=== PATIENT | female | born 1950 | race Caucasian/White ===

== ENCOUNTER → 2022-11-13 13:47 | Outpatient (BNVA) | payer OTHER, SELFPAY | PROVIDERS: PCP Student in an Organized Health Care Education/Training Program; Visit Provider Internal Medicine | DX: R00.2 Palpitations (principal); I10 Essential (primary) hypertension | CPT/HCPCS: 93005; 99212 ==

== ENCOUNTER → 2022-11-23 13:39 | Outpatient (REF) | payer OTHER, SELFPAY ==
--- NOTE | 2022-11-23 13:42 | HM_ITS ---
* Total monitoring time 30 days. Wear time 26 days. * Monitoring dates 11/23/2022 to 12/23/2022. * Underlying rhythm is sinus. Average ventricular rate 58/Min. Range 50 to 133/Min. * No evidence of atrial fibrillation. * There is evidence of supraventricular ectopy, sinus bradycardia, ventricular ectopy, possible junctional rhythm. One episode of NSVT, 6 beats. Unifocal. Cannot exclude aberrant conduction. * Palpitations, lightheadedness, skipped beats, irregular beats, flutter, headache described in diary. At different times, they have been associated with sinus rhythm, PACs, PVCs, bradycardia, junctional rhythm. Even while she was in junctional which is also not very clear, ventricular rate was still 60/Min. Hence nothing profound. MTDD
== END ==
LOC: HO.CARD 13:39
PROVIDERS: PCP Student in an Organized Health Care Education/Training Program; Visit Provider Internal Medicine
DX: R00.2 Palpitations (principal)
CPT/HCPCS: 93270

== ENCOUNTER 2023-05-23 14:49 | Outpatient (REF) | payer OTHER, SELFPAY ==
[2023-05-23 18:23] LABS: Anion Gap 15 (12-20); Blood Urea Nitrogen 14 mg/dL (9-16); Calcium 9.6 mg/dL (8.4-10.2); Carbon Dioxide 25 mmol/L (22-29); Chloride 104 mmol/L (96-108); Estimated Glomerular Filt Rate > 60; Glucose Random 107 mg/dL (60-115); Potassium 3.6 mmol/L (3.3-5.1); Sodium 140 mmol/L (135-145)
== END 2023-05-23 14:50 | disposition home or self-care (01) ==
LOC: HO.CHCLDS 14:49
PROVIDERS: Visit Provider Internal Medicine
DX: E87.6 Hypokalemia (principal)
CPT/HCPCS: 36415; 80048

== ENCOUNTER 2023-07-02 10:21 | Outpatient (REF) | payer OTHER, SELFPAY | END 2023-07-02 10:22 | disposition home or self-care (01) | LOC: HO.CHCLDS 10:21 | PROVIDERS: Visit Provider Student in an Organized Health Care Education/Training Program | DX: I10 Essential (primary) hypertension (principal) | CPT/HCPCS: 36415; 80048; 80061; 80076 ==

== ENCOUNTER 2024-01-30 09:32 | Outpatient (REF) | payer OTHER, SELFPAY ==
[2024-01-30 15:17] LABS: Anion Gap 16 (12-20); Blood Urea Nitrogen 17 mg/dL (9-16); Calcium 10.6 mg/dL (8.4-10.2); Carbon Dioxide 26 mmol/L (22-29); Chloride 103 mmol/L (96-108); Estimated Glomerular Filt Rate > 60; Glucose Fasting 86 mg/dL (60-99); Potassium 3.6 mmol/L (3.3-5.1); Sodium 141 mmol/L (135-145)
== END 2024-01-30 09:33 | disposition home or self-care (01) ==
LOC: HO.CHCLDS 09:32
PROVIDERS: Visit Provider Internal Medicine Cardiovascular Disease
DX: I48.0 Paroxysmal atrial fibrillation (principal)
CPT/HCPCS: 36415; 80048

== ENCOUNTER 2024-05-07 09:08 | Outpatient (REF) | payer OTHER, SELFPAY ==
[2024-05-07 14:07] LABS: Appearance Urine Clear; Color Urine Yellow; Glucose Urine UA Negative (Negative); Leukocyte Esterase Urine Trace (Negative); Nitrite Urine Negative (Negative); UMIC TRIGGER UA YES; Urine Blood Large (3+) (Negative); Urine Ketones Negative (Negative); Urine Protein Negative (Neg-Trace)
[2024-05-07 14:13] LABS: Bacteria Urine None Seen (None Seen); Hyaline Casts Urine 0-2 /LPF (0-2); RBC Urine >20 /HPF (0-2); Squamous Epithelial Cell Urine 0-2 /HPF (0-2); WBC Urine 0-5 /HPF (0-5)
[2024-05-07 14:47] LABS: Alanine Aminotransferase 22 U/L (0-31); Albumin Level 4.2 g/dL (3.5-5.0); Alkaline Phosphatase 75 U/L (39-117); Anion Gap 12 (12-20); Aspartate Amino Transferase 20 U/L (5-31); Bilirubin Direct 0.2 mg/dL (0.0-0.5); Bilirubin Total 0.5 mg/dL (0.0-1.0); Blood Urea Nitrogen 17 mg/dL (9-16); Calcium 9.6 mg/dL (8.4-10.2); Carbon Dioxide 28 mmol/L (22-29); Chloride 105 mmol/L (96-108); Cholesterol 194 mg/dL (<200); Estimated Glomerular Filt Rate 56; Glucose Random 101 mg/dL (60-115); HDL Cholesterol 64 mg/dL (>40); LDL Cholesterol Calculated 113 mg/dL (<100); Potassium 3.6 mmol/L (3.3-5.1); Sodium 141 mmol/L (135-145); Triglycerides 87 mg/dL (<150)
== END 2024-05-07 09:09 | disposition home or self-care (01) ==
LOC: HO.CHCLDS 09:08
PROVIDERS: Visit Provider Student in an Organized Health Care Education/Training Program
DX: I10 Essential (primary) hypertension (principal); R31.21 Asymptomatic microscopic hematuria
CPT/HCPCS: 36415; 80048; 80061; 80076; 81001

== ENCOUNTER 2024-09-01 10:36 | Outpatient (REF) | payer OTHER, SELFPAY ==
[2024-09-01 14:47] LABS: Alanine Aminotransferase 27 U/L (0-31); Albumin Level 4.2 g/dL (3.5-5.0); Alkaline Phosphatase 78 U/L (39-117); Anion Gap 15 (12-20); Aspartate Amino Transferase 31 U/L (5-31); Bilirubin Direct 0.3 mg/dL (0.0-0.5); Bilirubin Total 0.6 mg/dL (0.0-1.0); Blood Urea Nitrogen 13 mg/dL (9-16); Calcium 9.7 mg/dL (8.4-10.2); Carbon Dioxide 29 mmol/L (22-29); Chloride 103 mmol/L (96-108); Cholesterol 198 mg/dL (<200); Estimated Glomerular Filt Rate 60; Glucose Random 91 mg/dL (60-115); HDL Cholesterol 64 mg/dL (>40); LDL Cholesterol Calculated 116 mg/dL (<100); Potassium 3.6 mmol/L (3.3-5.1); Sodium 143 mmol/L (135-145); Total Protein 8.2 g/dL (6.5-8.0); Triglycerides 94 mg/dL (<150)
--- OUTSIDE RECORDS SUMMARY | 2024-09-02 19:55 | XMS_ITS | Data Portability ---
Author Organization [employer] Address [address] [place] [phone] Care Team Providers Care Senior Communications Engineer Name Role Phone [facility] Referring Provider [facility] Referring Provider Assessment No assessment recorded. Plan of Treatment Reminders Order Date Submit Date Provider Last Modified By Organization Details Last Modified Time Details Appointments None record ed. Lab None record ed. Referral None record ed. Procedures None record ed. Surgeries None record ed. Imaging None record ed. Medication Orders None record ed. Patient TargetsNo targets recorded. Patient InstructionsNo instructions recorded. Reason for Referral None Reported. Medical Equipment None Reported. Medications Name Sig Start Date Stop Date Status Note LastModified by Organization Details LastModified Time losartan 50 mg tablet TAKE 1 TABLET BY MOUTH EVERY DAY active Not Available Not Available No t Available cyclobenzapr ine 10 mg tablet active Not Available Not Available Not Available potassium chloride ER 10 mEq capsule,exte nded release TAKE 1 CAPSULE BY MOUTH TWICE DAILY active Not Available Not Available No t Available clonidine HCl 0.1 mg tablet TAKE 1 TABLET BY MOUTH TWICE DAILY active Not Available Not Available No t Available trazodone 50 mg tablet active Not Available Not Available No t Available triamcinolon e acetonide 0.5 % topical cream APPLY A THIN LAYER TOPICALLY TO THE AFFECTED AREAS TWICE DAILY active Not Available Not Available No t Available metoprolol tartrate 100 mg tablet TAKE 1 TABLET BY MOUTH TWO TIMES A DAY active Not Available Not Available Not Available ondansetron HCl 4 mg tablet TAKE 1 TABLET BY MOUTH EVERY 8 HOURS NEEDED FOR NAUSEA AND VOMITING FOR 1 DAY active Not Available Not Available No t Available metoprolol succinate ER 100 mg tablet,exten ded release 24 hr TAKE 1 TABLET BY MOUTH ONCE DAILY FOR 30 DAYS STOP PREVIOUS METOPROLOL PRESCRIPTIO N active Not Available Not Available No t Available atenolol 25 mg tablet TAKE 1 TABLET BY MOUTH IN THE MORNING active Not Available Not Available Not Available aspirin 81 mg tablet,delay ed release TAKE 1 TABLET BY MOUTH ONCE DAILY active Not Available Not Available No t Available alprazolam 0.5 mg tablet active Not Available Not Available Not Available flecainide 100 mg tablet TAKE 1 TABLET BY MOUTH EVERY 12 HOURS active Not Available Not Available No t Available pravastatin 20 mg tablet TAKE 1 TABLET BY MOUTH EVERY DAY AT BEDTIME active Not Available Not Available No t Available losartan 100 mg tablet TAKE 1 TABLET BY MOUTH EVERY DAY active Not Available Not Available No t Available Heartburn Relief (famotidine) 10 mg tablet TAKE 1 TABLET BY MOUTH TWICE DAILY NEEDED DYSPEPSIA active Not Available Not Available No t Available metoprolol tartrate 25 mg tablet TAKE 1 TABLET BY MOUTH TWICE DAILY active Not Available Not Available No t Available peg 3350-electro lytes 236 gram-22.74 gram-6.74 gram-5.86 gram solution USE DIRECTED PER PHYSICIAN INSTRUCTION S active Not Available Not Available No t Available Eliquis 5 mg tablet TAKE 1 TABLET BY MOUTH TWICE DAILY active Not Available Not Available No t Available BinaxNOW COVID-19 Ag Self Test kit Use as Directed on the Package active Not Available Not Available Not Available Vitals Date Recorded Oxygen saturation Oxygen saturation in Arterial blood by Pulse oximetry Body weight Heart rate Body height Respiratory rate Body temperature Systolic blood pressure Diastolic blood pressure Provider Name and Address Organization Details Last Updated DateTime 4 97 % 97 % 69224.8 g 56 /min 152.4 cm 14 /min 98.4 [degF] 160 mm[Hg] 90 mm[Hg] Not Available [facility] 4 13:48:02 Date Recorded Respiratory rate Body height Heart rate Body temperature Body weight Oxygen saturation Oxygen saturation in Arterial blood by Pulse oximetry Systolic blood pressure Diastolic blood pressure Provider Name and Address Organization Details Last Updated DateTime 4 16 /min 154.94 cm 76 /min 98.2 [degF] 55187.8 g 98 % 98 % 166 mm[Hg] 81 mm[Hg] Not Available [facility] 16:22:15 Social History None recorded. Functional Status None recorded. Mental Status None recorded. Family History Nothing Reported. Medical History No medical history recorded. Gynecological HistoryNo gynecological history recorded. Obstetrics History GPAL:G 0 P 0 0 0 0 Past Encounters Encounter ID Performer Location Encounter Start Date Encounter Closed Date Diagnosis/Indication Diagnosis SNOMED-CT Code Diagnosis ICD10 Code [id number] PAVAN AL MD [facility] [address] [place] [phone] 10/30/2023 13:47:18 10/31/2023 09:41:32 Sinus bradycardia 12207072 R00.1 [id number] Diana Rutledge MD [facility] [address] [place] [phone] 11/25/2023 16:22:07 11/26/2023 09:34:29 Congestive heart failure 75320424 I50.9 Health Concerns Section Related Observation LastModified by Organization Detai ls LastModified Time None Recorded Concern Status LastModified by Organization Details LastModified Time None Recorded Advance Directives Directive None Recorded Payers Encounter Date Sequence Insurance Name Policy Number Policy Desir Covered Member ID Desir Member ID Guarantor Name 10/30/2023 1 [facility] - DOS ON OR AFTER 2022 - DUAL ELIGIBLE - CUSTODIAL OPTIONS AND ONE CARE (MEDICARE REPLACEMENT/ADV ANTAGE - HMO) Dayan Gomez [id number] Dayan Gomez 11/25/2023 1 [facility] AFTER [facility] - DUAL ELIGIBLE - CUSTODIAL OPTIONS AND ONE CARE (MEDICARE REPLACEMENT/ADV ANTAGE - HMO) Dayan Gomez [id number] Dayanjeremy Gomez Notes Date Note Type Note Provider Name and Address Organization Details Recorded Time 10/30/2023 text/html [facility] Nurse Triage Notes (Steph De La Cruz): Reason For Request: Pt reporting pressure in her neck (left side) which is extending to her jaw>has never felt this sort of pressure before>states she has AFIB Chief Complaints: Pain PMH: Heart Disease Allergies: No Known Comments: left sided neck and jaw pressure since this morning. Denies chest/back or left arm pain. No dizziness/lighthea dedness or visual changes. Reports worsening pressure with movement. No trauma or swelling reported. Put on Eliquis recently for Afib. .................. .................. .................. .................. .................. .................. .................. ............... Automatic Toe Laster Note From Bryn Fuentes: Pt caox3 complains of palpitations last night. Pt denies complaints now. Pt reports a pressure in her upper neck woke her from sleep last night. Pressure was in her left arm as well and she says her HR was in the 40s. Pt also felt palpitations. Again, pt denies symptoms now. Pt reports she started eliquis last week but metoprolol dose remains unchanged. Pt pink warm and dry, secondary exam unremarkable. EKG to [facility]. [facility] requests that pt call bioanalyst to adjust dose today. I helped pt call the nurse at Dr. Howard's office at 2pm. They were given a thorough message to give to the MD. Pt advised if she gets palpations or pressure to call 911. Red flags and pt education discussed. Pt pleased with visit, appears reassured, is with family. .................. .................. .................. .................. .................. .................. .................. ............... Disposition: Fulfilled PAVAN AL MD [address] [facility], [place], [phone], [facility] 10/30/2023 17:48:50 11/25/2023 text/html [facility] Nurse Triage Notes (Mata Montoya): Reason For Request: Pt reporting bilateral equal swelling of both lower extremities (feet) going on for 6 days>went to PCP last saturday and was told by doctor probably the medication and states the lungs were clear Chief Complaints: Edema PMH: Heart Disease Allergies: No Known Comments: Deck Engineer verified the member's name//address and phone number. Education provided on the response time and the member was advised to monitor reported s/s and seek emergency treatment if needed. Member reporting bilateral equal edema x 6 days>went to PCP last Saturday and was told by doctor probably the medication and states the lungs were clear. Denies SOB - Wellness check requested .................. .................. .................. .................. .................. .................. .................. ............... Automatic Toe Laster Note From Joe Diaz: Pt reports increased palpitations and BLE edema since starting flecainide. Pt has not spoken to cardiology since starting the medication. Pt denies any diet changes, chest pain or pressure, SOB, LYON, f/n/v/d. Pt is alert, NAD. VSS. Afebrile. Non focal neuro exam. Normal gait. Lungs CTA. Benign ABD exam. +1 BLE edema. Unremarkable ECG. Pt called cardiology office with me present and they said a nurse or doctor will call back either before 5 pm today or first thing tomorrow morning. Pt instructed to continue the flecainide as prescribed until she speaks with the cardiology office. Pt also instructed to seek emergent medical care for new or worsening sx, which are reviewed with her. .................. .................. .................. .................. .................. .................. .................. ............... Disposition: Fulfilled Diana Rutledge MD [address] [place] [address],[address], [place], [phone], [facility] 11/25/2023 22:49:15 OBGyn Episode No OBEpisode recorded.
--- OUTSIDE RECORDS SUMMARY | 2024-09-02 19:55 | XMS_ITS | Continuity of Care Document ---
Author Organization [facility] Address [address] [place] [address]- Care Team Providers Care Laboratory Equipment Cleaner Name Role Phone Ariadne Jordan MD Primary Care Physician Encounter 07/29/24 - 08/05/24 [facility] [address], [address] [place] [address]- Attending Physician: Malcolm Castillo MD, I Admitting Physician: Malcolm Castillo MD, I Referring Physician: Malcolm Castillo MD, I Encounter Type: OutPatient One Time Allergies, Adverse Reactions, Alerts No Known Medication Allergies Immunizations Given and Recorded Vaccine Date Status Refusal Reason influenza virus vaccine, inactivated 08/22/22 Felipe rded influenza virus vaccine, inactivated 08/02/21 Felipe rded influenza virus vaccine, inactivated 08/17/20 Felipe rded influenza virus vaccine, inactivated 06/09/19 Felipe rded influenza virus vaccine, inactivated 09/29/18 Felipe rded influenza virus vaccine, inactivated 07/22/17 Felipe rded influenza virus vaccine, inactivated 07/12/16 Felipe rded influenza virus vaccine, inactivated 08/04/15 Felipe rded SARS-CoV-2 mRNA ([id number]) vax 04/14/22 Recorded SARS-CoV-2 (COVID-19) mRNA BNT-162b2 vac 07/24/21 Recorded SARS-CoV-2 (COVID-19) mRNA BNT-162b2 vac 11/22/20 Recorded SARS-CoV-2 (COVID-19) mRNA BNT-162b2 vac 11/01/20 Recorded pneumococcal 23-valent vaccine 09/29/18 Recorded pneumococcal 13-valent vaccine 07/22/17 Recorded Zoster Vaccine Live 07/12/16 Recorded tetanus/diphtheria/pertussis, acel(Tdap) 04/05/16 Recorded Medications amiodarone 200 mg oral tablet 1, tablet, By Mouth, Daily, # 90 tablet, Refills 2, Maintenance, 06/29/24 7:42:00 AM EDT, Route to Pharmacy Electronically, [facility], 158, cm, 06/01/24 10:02:00 EDT, Height, 68, kg, 05/18/24 14:57:00 EDT, Dry Weight Start Date: 06/29/24 Status: Ordered Quantity: 90.0 Unit: tablet Repeat number: 1 amLODIPine 5 mg oral tablet 5 mg, 1, tablet, By Mouth, Daily, # 90 tablet, Refills 1, Tot. Refills 1, Maintenance, 01/02/24 2:00:00 PM EDT, Route to Pharmacy Electronically, [facility], Partial fill upon patient request if the prescription is for a schedule II opioid drug., 157.48, cm, 01/02/24 13:16:00 EDT, Height,68.5, kg, 10/31/23 16:59:00 EST, Dry Weight Start Date: 01/02/24 Status: Ordered Quantity: 90.0 Unit: tablet Repeat number: 2 apixaban 5 mg oral tablet 1 tablet = 5 mg, By Mouth, 2 times a day, # 180 tablet, 0 Refills, Maintenance, 03/24/24 3:16:00 PM EDT, Tablet, [facility], Partial fill upon patient request if the prescription is for a schedule II opioid drug., 157.48, cm, 01/02/24 13:16:00 EDT, Height, 68.5, kg, 10/31/23 16:59:00 EST, Dry Weight Start Date: 03/24/24 Status: Ordered Quantity: 180.0 Unit: tablet Repeat number: 1 cetirizine 10 mg oral tablet 1 tablet = 10 mg, Daily, 0 Refills, Maintenance, 11/29/23 9:50:00 AM EST, Partial fill upon patient request if the prescription is for a schedule II opioid drug. Start Date: 11/29/23 Status: Ordered Repeat number: 1 famotidine 10 mg oral tablet 1 tablet = 10 mg, By Mouth, 2 times a day, PRN Dyspepsia, # 30 tablet, 1 Refills, Soft Stop, :24:00 AM EST, [facility], Partial fill upon patient request if the prescription is fora schedule II opioid drug., 158, cm, 10/29/23 8:06:00 EST, Height, 66.4, kg, 05/14/23 20:12:00 EDT,Dry Weight Start Date: 10/29/23 Status: Ordered Quantity: 30.0 Unit: tablet Repeat number: 2 Indication: Encounter for screening for malignant neoplasm of colon losartan 100 mg oral tablet 1 tablet = 100 mg, By Mouth, Daily, # 90 tablet, 0 Refills, Maintenance, 07/03/23 4:33:00 PM EDT, Tablet, [facility], Partial fill upon patient request if the prescription is for a schedule II opioid drug., 158, cm, 07/03/23 15:21:00 EDT, Height, 66.4, kg, 05/14/23 20:12:00 EDT, Dry Weight Start Date: 07/03/23 Status: Ordered Quantity: 90.0 Unit: tablet Repeat number: 1 metoprolol 100 mg oral tablet 50 mg, 0.5, tablet, By Mouth, 2 times a day, # 30 tablet, Refills 1, Tot. Refills 1, Maintenance, 05/15/23 10:59:00 AM EDT, Route to Pharmacy Electronically, [facility] 3, Partial fill upon patient request if the prescription is for a schedule II opioid drug., 158, cm, 05/15/23 7:21:00 ED T, Height, 66.4, kg, 05/14/23 20:12:00 EDT, Dry Weight Start Date: 05/15/23 Stop Date: 07/14/23 Status: Ordered Quantity: 30.0 Unit: tablet Repeat number: 2 omeprazole 40 mg oral enteric coated capsule 1 capsule = 40 mg, By Mouth, 2 times a day, # 28 capsule, 0 Refills, Maintenance, 05/28/24 1:51:00 PMEDT, [facility], Partial fill upon patient request if the prescription is for a scheduleII opioid drug., 158, cm, 05/18/24 14:57:00 EDT, Height, 68, kg, 05/18/24 14:57:00 EDT, Dry Weight Start Date: 05/28/24 Stop Date: 06/11/24 Status: Ordered Quantity: 28.0 Unit: capsule Repeat number: 1 pravastatin 20 mg oral tablet 20 mg, 1, tablet, By Mouth, Daily, # 30 tablet, Refills 0, Maintenance, 01/20/23 1:07:00 PM EDT, Partial fill upon patient request if the prescription is for a schedule II opioid drug. Start Date: 01/20/23 Status: Ordered Quantity: 30.0 Unit: tablet Repeat number: 1 torsemide 10 mg oral tablet 1 tablet = 10 mg, By Mouth, Daily, # 90 tablet, 1 Refills, Maintenance, 01/02/24 2:00:00 PM EDT, Tablet, [facility], Partial fill upon patient request if the prescription is for a schedule II opioid drug., 157.48, cm, 01/02/24 13:16:00 EDT, Height, 68.5, kg, 10/31/23 16:59:00 EST, Dry Weight Start Date: 01/02/24 Status: Ordered Quantity: 90.0 Unit: tablet Repeat number: 2 Problem List Condition Confirmation Course Effective Dates Status Health St atus Informant Hypertension Confirmed Active Dyspepsia Confirmed Active Results Radiology Reports * Exam Date Time Procedure Performing Provider Status 07/29/24 11:[address] Abd/Pelvis W/O + W/ IV Contrast Jt Ellis; Auth (Verified) Notes: (CT Abd/Pelvis W/O + W/ IV Contrast) Reason For Exam: Hematuria RESULT: CT Abd/Pelvis W/O + W/ IV Contrast CT Abd/Pelvis W/O + W/ IV Contrast Reason: Hematuria TECHNIQUE: Spiral CT through the abdomen and pelvis with and without IV contrast, formatted in 3 planes. 100 cc of Isovue 300 was administered intravenously. This study was performed without oral contrast. Weight-based protocol using automatic tube modulation was used to optimize exposure parameters. COMPARISON: None [facility] performed at [facility], [address] [place] [address] FINDINGS: No evidence of urolithiasis. Liver and gallbladder image normally. Calcified granuloma within the spleen. Adrenal glands image normally. Cortical thinning in the inferior pole of the right kidney may be a sequela of prior infection or infarct. Ill-defined area of low attenuation in the midportion of the left kidney image 36 series 3 measuring approximately 1.6 x 1.1 cm. The pancreas images normally. Uterus and ovaries image normally. No enlarged lymph nodes within the abdomen or pelvis. Urinary bladder images normally. Normal appendix. A few scattered sigmoid diverticula. No acute osseous lesion. IMPRESSION: No evidence of urolithiasis. Ill-defined low-attenuation area within the midportion of the left kidney could be normal or the sequelae of previous infection or infarction but an infiltrating renal lesion is not excluded and an MRI is recommended for additional assessment. Area of cortical thinning within the inferior pole of the left kidney may be a sequela of previous infection or infarction. Other incidental findings are outlined above. An actionable message (Yellow) has been communicated via the [employer] system on 07/29/2024 11:59 AM, Message ID [id number]. WSN: [id number] Ordering Physician: Malcolm Castillo I Dictated By: Cristofer Alexis MD Dictated Date/Time: 07/29/24 11:59 a Reviewed By: Cristofer Alexis MD Signed By: Cristofer Alexis MD Signed Date/Time: 07/29/24 11:59 am Transcribed By: WM Transcribed Date/Time: 07/29/24 11:45 am Social History Social History Type Response Smoking Status Never (less than 100 in lifetime) entered on: 05/14/23 Sex Sex Representation Female (finding) Patient Care team information Care Team Personnel Name: Blaire Cuenca RN Position: S RN Member Role: Primary Care Nurse Name: Kavon Rodgers RN Position: S RN Member Role: Primary Care Nurse Name: Sarahy Calixto RN Position: S RN Member Role: Primary Care Nurse Name: Ariadne Jordan MD Position: S Outreach Member Role: PCP Address: [address] [place] [address] Telecom: Name: Mary Acevedo RN Position: S RN Member Role: Primary Care Nurse Care Team Related Persons Name: LATOYA REEVES Name: HERLINDA REEVES Insurance Providers Guarantor name: [facility] Information #: 1 Payer: NA Member Number: [id number] Policy Number: NA Group Number: NA Health Plan Information #: 2 Payer: [employer] Member Number: [id number] Policy Number: [employer]AT[employer]Z Group Number: [id number]
== END 2024-09-01 10:37 | disposition home or self-care (01) ==
LOC: HO.CHCLDS 10:36
PROVIDERS: Visit Provider Student in an Organized Health Care Education/Training Program
DX: I10 Essential (primary) hypertension (principal); E78.00 Pure hypercholesterolemia, unspecified
CPT/HCPCS: 36415; 80048; 80061; 80076

== ENCOUNTER 2024-12-24 11:38 | Outpatient (REF) | payer OTHER, SELFPAY ==
--- OUTSIDE RECORDS SUMMARY | 2024-12-24 12:55 | XMS_ITS | Encounter Summary ---
Author Organization [employer] Address [address] [place] [address] Care Team Providers Care Dining Service Supervisor Name Role Phone Ariadne Jordan MD Primary Care Provider [phone] Reason for Visit * Reason Comments Med Refill Encounter Details Date Type Department Care Team (Late st Contact Info) Description 12/17/2024 Refill [facility] [address] [place], [place] [id number] Ariadne Jordan MD [address] [place] [address] Social History Tobacco Use Types Packs/Day Years Used Date Smoking Tobacco: Never Smokeless Tobacco: Never Alcohol Use Standard Drinks/Week Comments Never 0 (1 standard drink = 0.6 oz pur e alcohol) Depression Answer Date Recorded Patient Health Questionnaire-9 Score 2 08/24/2024 Patient Health Questionnaire-9 Score 2 08/24/2024 Last PHQ-9: Questionnaire Data Not on file 1 10/25/2023 Housing Stability Answer Date Recorded What is your housing situation today? I have gonzalo ruelas 07/09/[address] you li ve. Do you have problems with any of the following? None of the above 07/09/2023 Food Insecurity Answer Date Recorded Within the past 12 months, y ou worried that your food would run out before you got money to buy more: Never True 07/09/2023 Within the past 12 months,th e food you bought just didn't last and you didn't have enough money to get more: Never True Transportation Answer Date Recorded In the past 12 months, has l ack of transportation kept you from medical appts, meetings, work or from getting things needed for daily living? No 07/09/2023 Utilities Answer Date Recorded In the past 12 months, has t he electric, gas, oil or water company threatened to shut off services in your home? No 07/09/2023 Depression Answer Date Recorded Patient Health Questionnaire-2 Score 0 08/24/2024 Internet Access Answer Date Recorded Internet Access Q1 Yes 05/25/2024 Internet Access Q2 Not on file 05/25/2024 Comments No Sex and Gender Information Value Date Recorded Sex Assigned at Female 07/23/2022 10:29 AM EDT Legal Sex Female 10:29 AM EDT Gender Identity Female 07/23/2022 10:29 AM EDT Sexual Orientation Straight 07/23/2022 10 :29 AM EDT documented as of this encounter Plan of Treatment Upcoming Encounters Date Type Department Care Team (Late st Contact Info) Description 01/13/2025 10:00 AM EDT Office Visit [facility] MED & PEDS [address] [place] [address] Ariadne Jordan MD [address] [place] [address] documented as of this encounter Visit Diagnoses Not on filedocumented in this encounter Additional Health Concerns Assessment Noted Time PHQ-9 Depression Total Score: 2 08/24/20 24 11:21 AM EST documented as of this encounter Care Teams Dining Service Supervisor Relationship Specialty Start Date End Date Ariadne Jordan MD [address] [place] [id number] PCP - General Family Medicine 09/08/15 documented as of this encounter
--- OUTSIDE RECORDS SUMMARY | 2024-12-24 12:55 | XMS_ITS | Encounter Summary ---
Author Organization [employer] Address [address] [place] [address] Care Team Providers Care Mechanical Project Manager Name Role Phone Ariadne Jordan MD Primary Care Provider Encounter Details Date Type Department Care Team (Latest Contact Info) Description 12/24/2024 Travel Social History Tobacco Use Types Packs/Day Years [...] Upcoming Encounters Date Type Department Care Team ([facility] st Contact Info) Description 01/13/2025 10:00 AM EDT Office Visit [facility] PEDS [address] [place] [address] Ariadne Jordan MD [address] [place] [address] documented as of this encounter Visit Diagnoses Not on filedocumented in this encounter Additional Health Concerns Assessment Noted Time PHQ-9 Depression Total Score: 2 08/24/20 24 11:21 AM EST documented as of this encounter Care Teams Mechanical Project Manager Relationship Specialty Start Date End Date Ariadne Jordan MD [address] [place] [id number] PCP - General Family Medicine 09/08/15 documented as of this encounter
--- OUTSIDE RECORDS SUMMARY | 2024-12-24 12:55 | XMS_ITS | Encounter Summary ---
Author Organization [employer] Address [address]t [place] [address] Care Team Providers Care University Manager Name Role Phone Ariadne Jordan MD Primary Care Provider [phone] Reason for Visit * Reason Onset Date Comments Med Refill 10/15/2023 Encounter Details Date Type Department Care Team ([facility] st Contact Info) Description 10/15/2023 Telephone [facility] MEDICINE [address] [place] [address] Ariadne Jordan MD [address] [place] [address] Med Refill Social History Tobacco Use Types Packs/Day Years Used Date Smoking Tobacco: Never Smokeless Tobacco: Never Alcohol Use Standard Drinks/Week Comments Never 0 (1 standard drink = 0.6 oz pur e alcohol) Depression Answer Date Recorded Patient Health Questionnaire-9 Score 2 06/11/2023 Housing Stability Answer Date Recorded What is [...] Answer Date Recorded Patient Health Questionnaire-2 Score 2 06/11/2023 Comments Unknown Sex and Gender Information Value Date Recorded Sex Assigned at Female 07/23/2022 10:29 AM EDT Legal Sex Female 10:29 AM EDT Gender Identity Female 07/23/2022 10:29 AM EDT Sexual Orientation Straight 07/23/2022 10 :29 AM EDT documented as of this encounter Miscellaneous Notes * Telephone Encounter - Cher Osuna - 10/15/2023 10:56 AM EST TC from pt requesting medication refill. Medications needing refill : pravastatin (Pravachol) 20 MG tablet To be sent to: [facility] [address] [place] [address] documented in this encounter Plan of Treatment Upcoming Encounters Date Type Department Care Team (Late st Contact Info) Description 01/13/2025 10:00 AM EDT Office Visit [facility] MED & PEDS [address] [place] [address] Ariadne Jordan MD [address] [place] [address] documented as of this encounter Visit Diagnoses Not on filedocumented in this encounter Additional Health Concerns Assessment Noted Time PHQ-9 Depression Total Score: 2 06/11/20 23 11:02 AM EDT documented as of this encounter Care Teams University Manager Relationship Specialty Start Date End Date Ariadne Jordan MD [address] [place] [address] PCP - General Family Medicine 09/08/15 documented as of this encounter
--- OUTSIDE RECORDS SUMMARY | 2024-12-24 12:55 | XMS_ITS | Encounter Summary ---
Author Organization [employer] Address [address] [facility] [address] 7t [place] [address] Care Team Providers Care Cnc Machinist 2Nd Shift Name Role Phone Ariadne Jordan MD Primary Care Provider [phone] Reason for Visit * Reason Comments Med Refill Encounter Details Date Type Department Care Team (Late st Contact Info) Description 10/15/2023 Refill [facility] MED & PEDS [address] [place], [place] [phone] Ariadne Jordan MD [address] [place] [address] Social History Tobacco Use Types Packs/Day Years [...] Description 01/13/2025 10:00 AM EDT Office Visit [facility] MED & PEDS [address] [place] [address] Ariadne Joradn MD [address] [place] [address] documented as of this encounter Visit Diagnoses Not on filedocumented in this encounter Additional Health Concerns Assessment Noted Time PHQ-9 Depression Total Score: 2 06/11/20 23 11:02 AM EDT documented as of this encounter Care Teams Cnc Machinist 2Nd Shift Relationship Specialty Start Date End Date Ariadne Jordan MD [address] [place] [address] PCP - General Family Medicine 09/08/15 documented as of this encounter
--- OUTSIDE RECORDS SUMMARY | 2024-12-24 12:55 | XMS_ITS | Encounter Summary ---
Author Organization [employer] Address [address] [facility] 7t [place] [address] Care Team Providers Care Energy Efficiency Engineer Name Role Phone Ariadne Jordan MD Primary Care Provider [phone] Encounter Details Date Type Department Care Team (Late st Contact Info) Description 08/05/2024 Orders Only [facility] [address] [place] [address] ProviderLilibeth MD Social History Tobacco Use Types Packs/Day Years [...] Recorded Patient Health Questionnaire-2 Score 2 06/11/2023 Internet Access Answer Date Recorded Internet Access [...] Upcoming Encounters Date Type Department Care Team ([facility] st Contact Info) Description 01/13/2025 10:00 AM EDT Office Visit [facility] MED & PEDS [address] [place] [address] Ariadne Jordan MD [address] [place] [address] documented as of this encounter Procedures Procedure Name Priority Date/Time Associated Diagnosis Comments CT ABDOMEN PELVIS W AND WO CONTRAST Routine 07/29/2024 4:09 PM EST documented in this encounter Results * CT Abdomen Pelvis w/ and w/o Contrast (07/29/2024 4:09 PM EST) Anatomical Region Laterality Modality Body, Pelvis, Abdomen Computed T omography us Historical Provider MD HERRING CT PROCEDURES Final R esult documented in this encounter Visit Diagnoses Not on filedocumented in this encounter Additional Health Concerns Assessment Noted Time PHQ-9 Depression Total Score: 2 06/11/20 23 11:02 AM EDT documented as of this encounter Care Teams Energy Efficiency Engineer Relationship Specialty Start Date End Date Ariadne Jordan MD [address] [place] [address] PCP - General Family Medicine 09/08/15 documented as of this encounter
--- OUTSIDE RECORDS SUMMARY | 2024-12-24 12:55 | XMS_ITS | Clinical Summary ---
Author Organization [employer] Address [address] [facility] 7t [place] [address] Care Team Providers Care Equity Structurer Name Role Phone Ariadne Jordan MD Primary Care Provider [phone] Allergies Active Allergy Reactions Criticality Noted Date Comments Amoxicillin Rash Low 04/26/2020 Medications Eliquis 5 MG tablet Take 1 tablet by mouth 2 times daily. 07/03/20 23 Active amiodarone (Pacerone) 200 MG tablet Take 200 mg by mouth in the morning. 12/03/19 24 Active amLODIPine (Norvasc) 5 MG tablet Take 1 tablet (5 mg) by mouth Once per day. 30 tablet 11 04/21/20 24 025 Active losartan (Cozaar) 50 MG tablet TAKE 1 TABLET BY MOUTH IN THE MORNING 90 tablet 12/04/19 25 Active metoprolol tartrate (Lopressor) 50 MG tablet Take 1 tablet by mouth twice daily 60 tablet 12/23/19 25 Active pravastatin (Pravachol) 20 MG tablet TAKE 1 TABLET BY MOUTH AT BEDTIME 60 tablet 12/23/19 25 Active metoprolol tartrate (Lopressor) 50 MG tablet Take 1 tablet (50 mg) by mouth 2 times daily. 60 tablet 12/23/19 25 Active pravastatin (Pravachol) 20 MG tablet Take 1 tablet (20 mg) by mouth at bedtime. 60 tablet 12/23/19 25 Active cloNIDine (Catapres) 0.1 MG tablet Take 1 tablet by mouth 2 times daily. 025 Discontinued(Th erapy completed) flecainide (Tambocor) 100 MG tablet Take 1 tablet by mouth every 12 (twelve) hours. 10/16/19 24 025 Discontinued( erapy completed) cetirizine (ZyrTEC) 10 MG tablet Take 1 tablet (10 mg) by mouth in the morning. 30 tablet 5 11/20/19 24 025 Discontinued( erapy completed) aspirin 81 MG EC tablet Take 1 tablet by mouth in the morning. 025 Discontinued( erapy completed) traZODone (Desyrel) 50 MG tabletIndicati ons:Adjustment insomnia Take 1 tablet (50 mg) by mouth at bedtime. 30 tablet 2 02/20/20 24 025 Discontinued( erapy completed) methocarbamol (Robaxin) 750 MG tablet Take 1 tablet (750 mg) by mouth Once per day for 15 days. 15 tablet 04/21/20 24 025 Discontinued( erapy completed) pravastatin (Pravachol) 20 MG tablet Take 1 tablet (20 mg) by mouth at bedtime. 60 tablet 08/24/20 24 025 Discontinued ALPRAZolam (Xanax) 0.5 MG tablet Take 1 pill half hour before flight 4 tablet 08/24/20 24 025 Discontinued( erapy completed) losartan (Cozaar) 50 MG tablet TAKE 1 TABLET BY MOUTH IN THE MORNING 90 tablet 09/01/20 24 025 Discontinued metoprolol tartrate (Lopressor) 50 MG tablet Take 1 tablet by mouth twice daily 60 tablet 11/17/19 25 025 Discontinued(Re order (will not trigger notification to Pharmacy)) Active Problems Problem Noted Date Diagnosed Date Dyspepsia 04/17/2024 Congestive heart failure 12/24/2023 Longstanding persistent atrial fibrillation 10/25 Class 2 obesity 01/25/2023 Primary hypertension 11/29/2022 Hypercholesteremia 11/29/2022 Pulmonary nodule 11/29/2022 Resolved Problems Problem Noted Date Diagnosed Date Resolved Date Hypertension 04/17/2024 08/24/2024 Encounters Date Type Department Care Team Description 12/24/2024 10:00 AM EDT Office Visit [facility] MED & PEDS [address] [place] [address] Donya Rodriguez MD Pre-op evaluation (Primary Dx) 12/24/2024 Travel 12/21/2024 Refill [facility] [address] [facility] [place] [address] Ariadne Jordan MD 12/19/2024 Refill [facility] [address] [facility] [place] [address] Ariadne Jordan MD 12/17/2024 Refill [facility] [address] [facility] [place] [address] Ariadne Jordan MD 12/11/2024 Telephone [facility] [address] [facility] [place] [address] Ariadne Jordan MD Pre-op Exam; pre-op 12/02/2024 Refill [facility] [address] [facility] [place] [address] Ariadne Jordan MD 11/17/2024 Refill [facility] [address] [facility] [place] [address] Ariadne Jordan MD from Last 3 Months Immunizations Name Administration Dates Next Due Influenza High-dose Quadriva lent Preservative Free 06/11/2023,08/02/2021,08/17/2020 Influenza Quadrivalent Adjuvanted 08/22/2022 Influenza injectable quadriv alent preservative free 09/29/2018,07/22/2017,07/12/2016 Influenza, High Dose Seasona l, Preservative Free 08/24/2024,06/09/2019 Influenza, IIV3, injectable 08/22/2022,1 10/02/2020,08/17/2020,06/09,09/29/2018,07/22/2017,07/12/2016 ,08/04/2015 Pfizer Covid-19 Vaccine 12+ 07/24/2021,,11/01/2020 Pneumococcal Conjugate PCV 13 07/22/2017 Pneumococcal Polysaccharide PPSV23 09/29/2018 Tdap 04/05/2016 Zoster, live 07/12/2016 Family History Medical History Relation Name Comments Stroke Father Relation Name Status Comments Father Social History Tobacco Use Types Packs/Day Years Used Date Smoking Tobacco: Never Smokeless Tobacco: Never Tobacco Cessation:Counseling Given: Not Answered Alcohol Use Standard Drinks/Week Comments Never 0 [...] Orientation Straight 07/23/2022 10 :29 AM EDT Last Filed Vital Signs Vital Sign Reading Time Taken Comments Blood Pressure 156/72 12/24/2024 10:11 AM EDT Pulse 78 12/24/2024 10:11 AM EDT Temperature 36.6 ??C (97.8 ??F) 12/24/2024 10:11 AM E DT Respiratory Rate 20 12/24/2024 10:11 AM EDT Oxygen Saturation 99% 12/24/2024 10:11 AM EDT Inhaled Oxygen Concentration - - Weight 69.5 kg (153 lb 3.2 oz) 12/24/2024 10:11 AM EDT Height 153 cm (5' 0.24 ) 12/24/2024 10:11 AM EDT Body Mass Index 29.69 12/24/2024 10:11 AM EDT Plan of Treatment Upcoming Encounters Date Type Department Care Team ([facility] st Contact Info) Description 01/13/2025 10:00 AM EDT Office Visit [facility] MED & PEDS [address] [place] [address] Ariadne Jordan MD [address] [place] [address] Health Maintenance Due Date Last Done Comments CT Colonography 1950 FIT DNA/Cologuard 1950 FIT 1950 FOBT 1950 Sigmoidoscopy 1950 Alcohol/Substance Use Screening 1962 Hepatitis C Screening 1968 Mammogram 1990 RSV Patients and Patients Aged 60 years or older (1 - Risk 60-74 years 1-dose series) 2010 Zoster Vaccines (2 of 3) 09/06/2016 07/12/2016 COVID-19 Vaccine ( season) 2024 04/14/2022, 07/24/2021, 11/22/2020, Additional history exists SDOH Screening 04/14/2025 04/14/2024 Depression Screening 08/24/2025 08/24/2024, 08/24/20 24 Tobacco Screening 08/24/2025 08/24/2024 DTaP/Tdap/Td Vaccines (2 - Td or Tdap) 04/05/2026 04/05/2016 Colonoscopy 03/28/2027 03/28/2017 Colorectal Cancer Screening 03/28/2027 Lipid Panel 09/01/2029 09/01/2024, 04/23, 07/02/2023, Additional history exists Pneumococcal Vaccine: 50+ Years Completed 09/29/2018, 07/22/2017 Influenza Vaccine Completed 08/24/2024, , 08/22/2022, Additional history exists HIB Vaccines Aged Out No longer eligi ble based on patient's age to complete this topic HPV Vaccines Aged Out No longer eligi ble based on patient's age to complete this topic Hepatitis A Vaccines Aged Out No long er eligible based on patient's age to complete this topic Hepatitis B Vaccines Aged Out No long er eligible based on patient's age to complete this topic IPV Vaccines Aged Out No longer eligi ble based on patient's age to complete this topic Meningococcal Vaccine Aged Out No cayetano samara eligible based on patient's age to complete this topic RSV under 20 months Aged Out No longe r eligible based on patient's age to complete this topic Rotavirus Vaccines Aged Out No longer eligible based on patient's age to complete this topic Procedures Procedure Name Priority Date/Time Associated Diagnosis Comments ECG 12-LEAD Routine 12/24/2024 12:19 PM EDT Pre-op evaluation LIPID PANEL, STANDARD Routine 09/01/2024 10:37 AM EST Primary hypertension Hypercholesteremia HM COLONOSCOPY Routine 03/28/2017 from Last 3 Months or Most Recently Relevant to Health Maintenance Results * ECG 12 lead (12/24/2024 12:19 PM EDT) Narrative Donya Rodriguez MD - 12/24/2024 12:19 PM EDT Heart rate 61 bpm. ??[place] XIX degrees. ??Normal sinus rhythm. ??No sign of left atrial enlargement or right atrial enlargement. ??No sign of hypertrophy. ??No ST elevation or ST depression. ??EKG without significant abnormalities. us Donya Rodriguez MD ECG ORDERABLES Final Resul t * (ABNORMAL) Lipid Panel, Standard (09/01/2024 10:37 AM EST) Triglycerides 94 <150 mg/dL [facility] Comment:Desirable Triglyceri de: less than 150 mg/dLBorderline High Triglyceride 150-199 mg/dLHigh Triglyceride: 200-499 mg/dLVery High Triglyceride: greater than or equal to 5OO mg/dL Cholesterol 198 <200 mg/dL [facility] Comment:Desirable Cholestero l: less than 200 mg/dLBorderline High Cholesterol: 200-239 mg/dLHigh Cholesterol: greater than 239 mg/dL LDL Cholesterol Calculated 116(H) <100 mg/dL [facility] Comment:Desirable LDL: less than 100 mg/dLNear Optimal/Above Optimal LDL: 110- 129 mg/dLBorderline High LDL: 130-159 mg/dLHigh LDL: 160-189 mg/dLVery High LDL: greater than or equal to 190 mg/dL HDL Cholesterol 64 >40 mg/dL [facility] Comment:Desirable HDL: great er than 40 mg/dL Note: This HDL assay may give artificially low results in patients with liver disease. Blood Venous blood specimen / Unknown 09/01/2024 10:37 AM EST 09/01/2024 2:12 PM EST Ariadne Jordan MD LAB BLOOD ORDERABLES Final Resul t [facility] [address] [place] [address] [phone] * Colonoscopy (03/28/2017) Colonoscopy Normal Normal Historical Provider HEALTH MAINTENANCE Final Result from Last 3 Months or Most Recently Relevant to Health Maintenance Insurance [facility] Care Teams Equity Structurer Relationship Specialty Start Date End Date Ariadne Jordan MD [address] [place] [id number] PCP - General Family Medicine 09/08/15
--- OUTSIDE RECORDS SUMMARY | 2024-12-24 12:55 | XMS_ITS | Encounter Summary ---
Author Organization [employer] Address [address] [facility] [address]t [place] [address] Care Team Providers Care Community Engagement Leader Name Role Phone Ariadne Jordan MD Primary Care Provider [phone] Reason for Visit * Reason Comments Med Refill Encounter Details Date Type Department Care Team (Late st Contact Info) Description 10/12/2023 Refill [facility] MED & PEDS [address] [place], [place] [phone] Ariadne Jordan MD [address] [place] [address] Social History Tobacco Use Types Packs/Day Years [...] Description 01/13/2025 10:00 AM EDT Office Visit [facility] CH[facility] MED & PEDS [address] [place] [address] Ariadne Jordan MD [address] [place] [address] documented as of this encounter Visit Diagnoses Not on filedocumented in this encounter Additional Health Concerns Assessment Noted Time PHQ-9 Depression Total Score: 2 06/11/20 23 11:02 AM EDT documented as of this encounter Care Teams Community Engagement Leader Relationship Specialty Start Date End Date Ariadne Jordan MD [address] [place] [address] PCP - General Family Medicine 09/08/15 documented as of this encounter
--- OUTSIDE RECORDS SUMMARY | 2024-12-24 12:55 | XMS_ITS | Encounter Summary ---
Author Organization [employer] Address [address] [facility] [address] [place] [address] Care Team Providers Care Saw Feeder Name Role Phone Ariadne Jordan MD Primary Care Provider [phone] Encounter Details Date Type Department Care Team (Latest Contact Info) Description 11/10/2019 Abstract [facility] CONVERSIONS Dental, Provider, DDS Social History Tobacco Use Types Packs/Day Years Used Date Smoking Tobacco: Never Assessed Comments Unknown Sex and Gender Information Value [...] Description 01/13/2025 10:00 AM EDT Office Visit [facility] CH[facility] MED & PEDS [address] [place] [address] Ariadne Jordan MD [address] [place] [address] documented as of this encounter Visit Diagnoses Not on filedocumented in this encounter Care Teams Saw Feeder Relationship Specialty Start Date End Date Ariadne Jordan MD [address] [place] [address] PCP - General Family Medicine 09/08/15 documented as of this encounter
--- OUTSIDE RECORDS SUMMARY | 2024-12-24 12:55 | XMS_ITS | Data Portability ---
Author Organization [employer], Or in [email or web address] Address [address] [place] [address] Care Team Providers Care Ordnance Mechanic Name Role Phone [facility] Referring Provider [facility] Referring Provider Assessment No assessment recorded. [...] Updated DateTime 4 97 % 97 % 84206.8 g 56 /min 152.4 cm 14 /min 98.4 [degF] 160 mm[Hg] 90 mm[Hg] Not Available Invoiceable 4 13:48:02 Date Recorded Respiratory rate Body height Heart rate Body temperature Body weight Oxygen saturation Oxygen saturation in Arterial blood by Pulse oximetry Systolic blood pressure Diastolic blood pressure Provider Name and Address Organization Details Last Updated DateTime 4 16 /min 154.94 cm 76 /min 98.2 [degF] 11871.8 g 98 % 98 % 166 mm[Hg] 81 mm[Hg] Not Available [employer] 4 16:22:15 Social History None recorded. Functional Status None recorded. Mental Status None recorded. Family History Nothing Reported. Medical History No medical history recorded. Gynecological HistoryNo gynecological history recorded. Obstetrics History GPAL:G 0 P 0 0 0 0 Past Encounters Encounter ID Performer Location Encounter Start Date Encounter Closed Date Diagnosis/Indication Diagnosis SNOMED-CT Code Diagnosis ICD10 Code Diagnosis Note [id number] PAVAN AL MD Main - [address] [phone] 10/30/2023 13:47:18 10/31/2023 09:41:32 Sinus bradycardia 61258675 R00.1 Evaluation in the field was performed by my jailor colleague, as noted above, I provided real-time direction and supervisio n for this visit. The evaluation revealed 73 yo female with hx of Afib who was recently started on Flecanide 100 mg BID and Apixaban. Reports that has been noticing that her HR has been low when she check her BP and this morning noticed jaw and neck pressure that have resolved currently. Denies CP, SOB, nausea, diaphoresi s. Pt also on Metoprolol tartrate 100 mg BIDECG showed sinus bradicardi a with HR 54, QRS [address]-T changes suggestive of acute ischemia ( no old ECG for comparison ) . Per further discussion with pt she reports that she was admitted in April and had echo cardiogram that was normal. No current stress test but states that was done 2 years ago and it was normal .Called Dr. Howard office ( EP that had started the flecanide ) at @ 2:04. Spoke with office medical front desk specialist ( pt was calling on the other line as well with the help of jailor ) and asked for Dr. Howard to be paged. No call back until 6 PM. Spoke with pt and advised to call her regular cardiologi st in am to let him know about bradicardi a and pain Advised to go to ED if pain reoccurs. Impression :Sinus bradicardi a Plan:Pt was recently started on Flecanide 100 mg BID with conversion to NSR with bradicardi a to 54 and QTC 120. Unfortunat ajay I do not have old ECG to compare the QTc. Bradicardi a and prolongati on of QTc >25 % is worrisome for flecanide toxicity.F lecanide is a a class Ic antiarrhyt hmic agent and is usually used on young patient or patient with no ischaemic heart disease. ECG with no signs of acute ischemia but jaw and neck pain worrisome. Primary care, consider: Please get in touch with pt to make sure that she has communicat ed with her cardiologi st given bradicardi a and widening of her QRS while on flecanide . Msg left for EP physician, Dr. Thomas with no call back today. Dispositio n: We discussed the diagnostic uncertaint y of home visits and the risk associated with this. In this case, the patient and I felt this to be an acceptable and reasonable amount of risk given the benefit of avoiding an ED visit. We discussed the need to seek care urgently/e mergently in the setting of any new or worsening serious symptoms, particular ly return of pain in her chest, jaw, neck or left arm, dizziness, weakness, diaphoresi s or any other concerns. Diana Rutledge MD Main - [facility] [address] [place] [phone] 11/25/2023 16:22:07 11/26/2023 09:34:29 Congestive heart failure [id number] I50.9 I provided real -time medical direction via phone for this encounter, and was available for additional phone based assistance as needed. I have reviewed and agree with the Assessment and Plan as documented by the Unmanned Aircraft Systems Roboticist. Patient given the opportunit y to ask questions. started on flecanide 6 weeks ago. noting daily palpitatio ns in the last few weeks (increased from 2x/mo) and now new LE symmetric pitting edema. Denies chest pain, SOB, claudicati on, syncope/pr esyncope. no appreciabl e dietary changes. Heart and lung sounds reassuring on exam per jailor. EKG: QRS 111, IVCD, NSR, no ischemic changes Exam consistent w/ heart failure but has an unclear automation driver. Concerned these symptoms may represent LV function depression 2/2 flecanide vs exacerbati on of underlying arrhythmia driving heart failure exacerbati on. Unmanned Aircraft Systems Roboticist called cardiologi st with patient as did I to express concerns and ensure close follow up tomorrow. For the time being deferring diuretics given lack of clarity on automation driver. Pt to continue taking medication pending cardiology advice as I'm unsure if flecanide requires tapering. Reviewed warning signs/sx. Health Concerns Section Related Observation LastModified by Organization Detai ls LastModified Time None Recorded Concern Status LastModified by Organization Details LastModified Time None Recorded Advance Directives Directive None Recorded Payers Encounter Date Sequence Insurance Name Policy Number Policy Desir Covered Member ID Desir Member ID Guarantor Name 10/30/2023 1 [facility] - DOS ON OR AFTER 2022 - DUAL ELIGIBLE - GROUP HOME OPTIONS AND ONE CARE (MEDICARE REPLACEMENT/ADV ANTAGE - HMO) Dayan Gomez [id number] Dayan Gomez 11/25/2023 1 [facility] - DOS ON OR AFTER 2022 - DUAL ELIGIBLE - GROUP HOME OPTIONS AND ONE CARE (MEDICARE REPLACEMENT/ADV ANTAGE - HMO) Dayan Gomez [id number] Dayan Jason Notes Date Note Type Note Provider Name [...] .................. .................. .................. .................. .................. .................. ............... [employer] Roboticist Note From Fuentes Clemente: Pt caox3 complains of palpitations last night. [...] and dry, secondary exam unremarkable. EKG to [facility]. [facility] requests that pt call contract administrative assistant to adjust dose today. I helped pt [...] .................. ............... Disposition: Fulfilled PAVAN AL MD [address] [place] [address],[address], [place], [address], [employer] 10/30/2023 17:48:50 11/25/2023 text/html CRC Nurse Triage Notes (Mata Montoya): Reason For Request: Pt reporting bilateral equal swelling of both lower extremities (feet) going on for 6 days>went to PCP last saturday and was told by doctor probably the medication and states the lungs were clear Chief Complaints: Edema PMH: Heart Disease Allergies: No Known Comments: Transportation Superintendent verified the member's name//address and phone number. [...] .................. .................. .................. .................. .................. .................. ............... [employer] Roboticist Note From Joe Diaz: Pt reports increased [...] .................. .................. .................. .................. .................. ............... Disposition: Bernardo Rutledge MD [address] [facility],[address], [place], [address], [employer] 11/25/2023 22:49:15 OBGyn Episode No OBEpisode recorded.
--- OUTSIDE RECORDS SUMMARY | 2024-12-24 12:55 | XMS_ITS | Encounter Summary ---
Author Organization [employer] Address [address] [facility] 7t [place] [address] Care Team Providers Care Drapery Seamstress Name Role Phone Ariadne Jordan MD Primary Care Provider [phone] Encounter Details Date Type Department Care Team (Latest Contact Info) Description 05/04/2019 Abstract [facility] CONVERSIONS Dental, Provider, DDS Social History Tobacco [...] Description 01/13/2025 10:00 AM EDT Office Visit [facility]C MED & PEDS [address] [place] [address] Ariadne Jordan MD [address] [place] [address] documented as of this encounter Visit Diagnoses Not on filedocumented in this encounter Care Teams Drapery Seamstress Relationship Specialty Start Date End Date Ariadne Jordan MD [address] [place] [address] PCP - General Family Medicine 09/08/15 documented as of this encounter
--- OUTSIDE RECORDS SUMMARY | 2024-12-24 12:55 | XMS_ITS | Encounter Summary ---
Author Organization [employer] Address [address] [facility] 7t [place] [address] Care Team Providers Care Medical Center Representative Name Role Phone Ariadne Jordan MD Primary Care Provider [phone] Reason for Visit * Reason Comments Med Refill Encounter Details Date Type Department Care Team (Late st Contact Info) Description 12/19/2024 Refill [facility] MED & PEDS [address] [place], [place] [phone] Ariadne Jordan MD [address] [place] [address] Social History Tobacco Use Types Packs/Day Years [...] Description 01/13/2025 10:00 AM EDT Office Visit [facility] MED & PEDS [address] [place] [address] Ariadne Jordan MD [address] [place] [address] documented as of this encounter Visit Diagnoses Not on filedocumented in this encounter Additional Health Concerns Assessment Noted Time PHQ-9 Depression Total Score: 2 08/24/20 24 11:21 AM EST documented as of this encounter Care Teams Medical Center Representative Relationship Specialty Start Date End Date Ariadne Jordan MD [address] [place] [address] PCP - General Family Medicine 09/08/15 documented as of this encounter
--- OUTSIDE RECORDS SUMMARY | 2024-12-24 12:55 | XMS_ITS | Encounter Summary ---
Author Organization [employer] Address [address] [facility] 7t [place] [address] Care Team Providers Care Meter Maker Name Role Phone Ariadne Jordan MD Primary Care Provider [phone] Reason for Visit * Reason Onset Date Comments Med Refill 09/27/2023 Encounter Details Date Type Department Care Team ([facility] st Contact Info) Description 09/27/2023 Telephone [facility] MED & PEDS [address] [place] [address] Ariadne Jordan MD [address] [place] [address] Med Refill Social History Tobacco Use Types [...] encounter Miscellaneous Notes * Telephone Encounter - Genny Bustamantecheko Brandon - 09/27/2023 10:21 AM EST TC from pt requesting medication refill. Medications needing refill : aspirin (EQ Aspirin Adult Low Dose) 81 MG EC tablet cyclobenzaprine (Flexeril) 10 MG tablet losartan (Cozaar) 50 MG tablet metoprolol tartrate (Lopressor) 100 MG tablet pravastatin (Pravachol) 20 MG tablet traZODone (Desyrel) 50 MG tablet triamcinolone (Kenalog) 0.5 % cream To be sent to: [facility] [place], [place] - [address] [place] [address] Pt is switching Pharmacy's from [facility] to [facility] documented in this encounter Plan of Treatment Upcoming Encounters Date Type Department Care Team (Late st Contact Info) Description 01/13/2025 10:00 AM EDT Office Visit [facility] MED & PEDS [address] [place] [address] Ariadne Jordan MD [address] [place] [address] documented as of this encounter Visit Diagnoses Not on filedocumented in this encounter Additional Health Concerns Assessment Noted Time PHQ-9 Depression Total Score: 2 06/11/20 23 11:02 AM EDT documented as of this encounter Care Teams Meter Maker Relationship Specialty Start Date End Date Ariadne Jordan MD [address] [place] [address] PCP - General Family Medicine 09/08/15 documented as of this encounter
--- OUTSIDE RECORDS SUMMARY | 2024-12-24 12:55 | XMS_ITS | Encounter Summary ---
Author Organization [employer] Address [address] [facility] [address] 7[address] [place] [address] Care Team Providers Care Coding Educator Name Role Phone Ariadne Jordan MD Primary Care Provider [phone] Reason for Visit * Reason Onset Date Comments Referral 10/15/2023 Encounter Details Date Type Department Care Team ([facility] st Contact Info) Description 10/15/2023 Telephone [facility] MED[facility] [address] [place] [address] Ariadne Jordan MD [address] [place] [address] Referral Social History Tobacco Use Types Packs/Day Years Used Date Smoking Tobacco: Never Smokeless Tobacco: Never Alcohol Use Standard Drinks/Week Comments Never 0 (1 standard drink = 0.6 oz pur e alcohol) Depression Answer Date Recorded Patient Health Questionnaire-9 Score 2 06/11/2023 Housing Stability Answer Date Recorded What is your housing situation today? I have gonzalomagnolia ruelas 07/09/[address] you [...] encounter Miscellaneous Notes * Telephone Encounter - Valerie Cedillo RN - 10/15/2023 11:12 AM EST Pt requesting referral to chiropractor for ongoing back pain discussed during last appt. Please review and advise. * Telephone Encounter - Cher Osuna - 10/15/2023 11:01 AM EST Tc from pt requesting a referral for quadriparetic due to back pain. documented in this encounter Plan of Treatment Upcoming Encounters Date Type Department Care Team (Late st Contact Info) Description 01/13/2025 10:00 AM EDT Office Visit [facility] MED & PEDS [address] [place] [address] Ariadne Jordan MD [address] [place] [address] documented as of this encounter Visit Diagnoses Not on filedocumented in this encounter Additional Health Concerns Assessment Noted Time PHQ-9 Depression Total Score: 2 06/11/20 23 11:02 AM EDT documented as of this encounter Care Teams Coding Educator Relationship Specialty Start Date End Date Ariadne Jordan MD [address] [place] [address] PCP - General Family Medicine 09/08/15 documented as of this encounter
--- OUTSIDE RECORDS SUMMARY | 2024-12-24 12:55 | XMS_ITS | Encounter Summary ---
Author Organization [employer] Address [address] [facility] 7t [place] [address] Care Team Providers Care Liquor Tester Name Role Phone Ariadne Jordan MD Primary Care Provider [phone] Reason for Visit * Reason Onset Date Comments Prior Authorization 06/24/2023 CT Chest w/o Contrast Encounter Details Date Type Department Care Team ([facility] st Contact Info) Description 06/24/2023 Telephone [facility] CH[facility] MED & PEDS [address] [place] [address] Ariadne Jordan MD [address] [place] [address] Prior Authorization (CT Chest w/o Contrast) Social History Tobacco Use Types Packs/Day Years Used Date Smoking Tobacco: Never Smokeless Tobacco: Never Alcohol Use Standard Drinks/Week Comments Never 0 (1 standard drink = 0.6 oz pur e alcohol) Depression Answer Date Recorded Patient Health Questionnaire-9 Score 2 06/11/2023 Depression Answer Date Recorded Patient Health Questionnaire-2 Score 2 06/11/2023 Comments Unknown Sex and Gender Information Value Date Recorded Sex Assigned at Female 07/23/2022 10:29 AM EDT Legal Sex Female 10:29 AM EDT Gender Identity Female 07/23/2022 10:29 AM EDT Sexual Orientation Straight 07/23/2022 10 :29 AM EDT documented as of this encounter Miscellaneous Notes * Telephone Encounter - Natividad Cuadra - 06/24/2023 10:00 AM EDT Tc from Luis Carlos at [facility] calling in regards to PA for CT Chest w/o Contrast order. States they need clinical notes pertaining to pulmonary nodule. Director Web did transfer Luis Carlos to HIM where she might be able to get notes. Luis Carlos still requested a call back. Please call [phone] ext [phone] Fax number [phone] documented in this encounter Plan of Treatment Upcoming Encounters Date Type Department Care Team (Late st Contact Info) Description 01/13/2025 10:00 AM EDT Office Visit [facility] MED & PEDS [address] [place] [address] Ariadne Jordan MD [address] [place] [address] documented as of this encounter Visit Diagnoses Not on filedocumented in this encounter Additional Health Concerns Assessment Noted Time PHQ-9 Depression Total Score: 2 06/11/20 23 11:02 AM EDT documented as of this encounter Care Teams Liquor Tester Relationship Specialty Start Date End Date Ariadne Jordan MD [address] [place] [address] PCP - General Family Medicine 09/08/15 documented as of this encounter
--- OUTSIDE RECORDS SUMMARY | 2024-12-24 12:55 | XMS_ITS | Encounter Summary ---
Author Organization [employer] Address [address] [facility] 7t [place] [address] Care Team Providers Care Rpg Programmer Analyst Name Role Phone Ariadne Jordan MD Primary Care Provider [phone] Reason for Visit * Reason Comments Preop evaluation Encounter Details Date Type Department Care Team ([facility] st Contact Info) Description 12/24/2024 10:00 AM EDT Office Visit [facility] CH[facility] MED & PEDS [address] [place] [address] Donya Rodriguez MD [address] [place] [address] Pre-op evaluation (Primary Dx) Social History Tobacco Use Types Packs/Day Years [...] AM EDT documented as of this encounter Last Filed Vital Signs Vital Sign Reading [...] Mass Index 29.69 12/24/2024 10:11 AM EDT documented in this encounter Progress Notes * Donya Rodriguez MD - 12/24/2024 10:00 AM EDT Subjective Patient ID: Dayan Gomez is a 74 y.o. female who presents for Preop evaluation. HPI Patient is here for preop evaluation prior to blepharoplasty under MAC anesthesia Patient is doing overall well. She is asymptomatic. Denies any chest pain/shortness of breath/paroxysmal nocturnal dyspnea/palpitations. Exercise tolerance more than 4 METS. No bleeding diathesis. Nogastrointestinal complaint Patient Active Problem List Diagnosis Primary hypertension Hypercholesteremia Pulmonary nodule Class 2 obesity Longstanding persistent atrial fibrillation (CMS/HCC) Congestive heart failure (CMS/HCC) Dyspepsia Current Outpatient Medications on File Prior to Visit Medication Sig Dispense Refill amiodarone (Pacerone) 200 MG tablet Take 200 mg by mouth in the morning. amLODIPine (Norvasc) 5 MG tablet Take 1 tablet (5 mg) by mouth Once per day. 30 tablet 11 Eliquis 5 MG tablet Take 1 tablet by mouth 2 times daily. losartan (Cozaar) 50 MG tablet TAKE 1 TABLET BY MOUTH IN THE MORNING 90 tablet 0 metoprolol tartrate (Lopressor) 50 MG tablet Take 1 tablet by mouth twice daily 60 tablet 0 metoprolol tartrate (Lopressor) 50 MG tablet Take 1 tablet (50 mg) by mouth 2 times daily. 60 tablet 0 pravastatin (Pravachol) 20 MG tablet TAKE 1 TABLET BY MOUTH AT BEDTIME 60 tablet 0 pravastatin (Pravachol) 20 MG tablet Take 1 tablet (20 mg) by mouth at bedtime. 60 tablet 0 [DISCONTINUED] ALPRAZolam (Xanax) 0.5 MG tablet Take 1 pill half hour before flight 4 tablet 0 [DISCONTINUED] aspirin 81 MG EC tablet Take 1 tablet by mouth in the morning. [DISCONTINUED] cetirizine (ZyrTEC) 10 MG tablet Take 1 tablet (10 mg) by mouth in the morning. 30 tablet 5 [DISCONTINUED] cloNIDine (Catapres) 0.1 MG tablet Take 1 tablet by mouth 2 times daily. [DISCONTINUED] flecainide (Tambocor) 100 MG tablet Take 1 tablet by mouth every 12 (twelve) hours. [DISCONTINUED] methocarbamol (Robaxin) 750 MG tablet Take 1 tablet (750 mg) by mouth Once per day for 15 days. 15 tablet 0 [DISCONTINUED] metoprolol tartrate (Lopressor) 50 MG tablet Take 1 tablet by mouth twice daily 60 tablet 0 [DISCONTINUED] pravastatin (Pravachol) 20 MG tablet Take 1 tablet (20 mg) by mouth at bedtime. 60 tablet 0 [DISCONTINUED] traZODone (Desyrel) 50 MG tablet Take 1 tablet (50 mg) by mouth at bedtime. 30 tablet 2 No current facility-administered medications on file prior to visit. Allergies Allergen Reactions Amoxicillin Rash Review of Systems Constitutional: Negative for appetite change, chills and diaphoresis. Eyes: Negative for pain, redness and itching. Respiratory: Negative for cough, choking and shortness of breath. Cardiovascular: Negative for leg swelling. Gastrointestinal: Negative for anal bleeding, blood in stool and constipation. Musculoskeletal: Negative for back pain. Objective BP (!) 156/72 (BP Location: Right arm, Patient Position: Sitting, BP Cuff Size: Adult) Pulse 78 Temp 97.8 ??F (36.6 ??C) (Oral) Resp 20 Ht 5' 0.24 (1.53 m) Wt 153 lb 3.2 oz (69.5 kg) SpO2 99% BMI 29.69 kg/m?? Physical Exam Constitutional: General: She is not in acute distress. Appearance: Normal appearance. She is not ill-appearing, toxic-appearing or diaphoretic. Cardiovascular: Rate and Rhythm: Normal rate. Pulmonary: Effort: Pulmonary effort is normal. No respiratory distress. Breath sounds: No wheezing. Neurological: General: No focal deficit present. Mental Status: She is alert. Psychiatric: Mood and Affect: Mood normal. Assessment/Plan Diagnoses and all orders for this visit: Pre-op evaluation Comments: Patient is a low clinical predictor for low risk surgery STOP-BANG questionnaire: 3, patient is an intermediate risk for sleep apnea Advised to hold Eliquis the day before the surgery and to resume it 24 hours after the surgery after hemostasis is achieved To take rest of home medication the morning of the surgery Deep venous thrombosis prophylaxis. Orders: - CBC auto differential; Future - Basic Metabolic Panel; Future documented in this encounter Plan of Treatment Upcoming Encounters Date Type Department Care Team (Late st Contact Info) Description 01/13/2025 10:00 AM EDT Office Visit [facility] MED & PEDS [address] [place] [address] Ariadne Jordan MD [address] [place] [address] Scheduled Orders Name Type Priority Associated Diagnoses Orde r Schedule CBC auto differential Lab Routine Pre-op evaluation Expected: 12/24/2024 (Approximate), Expires: 12/24/2025 Basic Metabolic Panel Lab Routine Pre-op evaluation Expected: 12/24/2024 (Approximate), Expires: 12/24/2025 documented as of this encounter Procedures Procedure Name Priority Date/Time Associated Diagnosis Comments ECG 12-LEAD Routine 12/24/2024 12:19 PM EDT Pre-op evaluation documented in this encounter Results * ECG 12 lead (12/24/2024 12:19 PM EDT) Donya De La Vega MD - 12/24/2024 12:19 PM EDT Heart rate 61 bpm. ??[place] XIX degrees. ??Normal sinus rhythm. ??No sign of left atrial enlargement or right atrial enlargement. ??No sign of hypertrophy. ??No ST elevation or ST depression. ??EKG without significant abnormalities. us Donya Rodriguez MD ECG ORDERABLES Final Resul t documented in this encounter Visit Diagnoses Diagnosis Pre-op evaluation- Primary documented in this encounter Additional Health Concerns Assessment Noted Time PHQ-9 Depression Total Score: 2 08/24/20 24 11:21 AM EST documented as of this encounter Care Teams Rpg Programmer Analyst Relationship Specialty Start Date End Date Ariadne Jordan MD [address] [place] [address] PCP - General Family Medicine 09/08/15 documented as of this encounter
--- OUTSIDE RECORDS SUMMARY | 2024-12-24 12:55 | XMS_ITS | Encounter Summary ---
Author Organization [employer] Address 75 [facility] 7t [place] [address] Care Team Providers Care Reconciliation Accountant Name Role Phone Ariadne Jordan MD Primary Care Provider [phone] Reason for Visit * Reason Onset Date Comments Med Refill 12/21/2024 Encounter Details Date Type Department Care Team (Late st Contact Info) Description 12/21/2024 Refill [facility] MEDICINE [address] [place] [address] Ariadne Jordan MD [address] [place] [address] Social History Tobacco Use Types Packs/Day Years [...] encounter Miscellaneous Notes * Telephone Encounter - Toni Vicente - 12/21/2024 8:15 AM EDT TC from pt requesting medication refill. Medications needing refill : metoprolol tartrate (Lopressor) 50 MG tablet pravastatin (Pravachol) 20 MG tablet To be sent to: [facility] [address] [place] [address] documented in this encounter Plan of Treatment Upcoming Encounters Date Type Department Care Team (Late st Contact Info) Description 01/13/2025 10:00 AM EDT Office Visit [facility] [address] [place] [address] Ariadne Jordan MD [address] [place] [address] documented as of this encounter Visit Diagnoses Not on filedocumented in this encounter Additional Health Concerns Assessment Noted Time PHQ-9 Depression Total Score: 2 08/24/20 24 11:21 AM EST documented as of this encounter Care Teams Reconciliation Accountant Relationship Specialty Start Date End Date Ariadne Jordan MD [address] [place] [address] PCP - General Family Medicine 09/08/15 documented as of this encounter
[2024-12-24 14:08] LABS: MANUAL DIFF FLAG NO
[2024-12-24 14:15] LABS: Basophils Absolute Auto 0.1 X10*3/uL (0.0-0.2); Basophils Percent Auto 0.7 % (0-2); Eosinophils Absolute Auto 0.1 X10*3/uL (0.0-0.4); Eosinophils Percent Auto 0.7 % (0-4); Hematocrit 41.6 % (37.0-47.0); Hemoglobin 13.8 g/dl (12.0-16.0); Imm Gran Abs Auto 0.03 X10*3/uL (0.00-0.03); Imm Gran Pct Auto 0.4 % (0.0-0.4); Lymphocytes Absolute Auto 1.6 X10*3/uL (1.2-4.9); Lymphocytes Percent Auto 21.3 % (20-40); Mean Corpuscular HGB Conc 33.2 g/dl (31.0-35.0); Mean Corpuscular Hemoglobin 29.7 pg (27.0-33.0); Mean Corpuscular Volume 89.5 fL (80.0-98.0); Mean Platelet Volume 12.9 fL (9.4-12.3); Monocytes Absolute Auto 0.5 X10*3/uL (0.1-1.2); Neutrophils Absolute Auto 5.1 x10*3/uL (2.0-8.3); Neutrophils Percent Auto 69.9 % (45-73); Platelet Count 166 X10*3/uL (160-400); Red Blood Count 4.65 X10*6/uL (4.20-5.50); Red Cell Distribution Width 14.5 % (11.0-16.0); White Blood Count 7.3 X10*3/uL (4.8-10.8)
[2024-12-24 14:24] LABS: Anion Gap 12 (12-20); Blood Urea Nitrogen 14 mg/dL (9-16); Calcium 9.7 mg/dL (8.4-10.2); Carbon Dioxide 29 mmol/L (22-29); Chloride 105 mmol/L (96-108); Estimated Glomerular Filt Rate > 60; Glucose Random 87 mg/dL (60-115); Potassium 4.1 mmol/L (3.3-5.1); Sodium 142 mmol/L (135-145)
== END 2024-12-24 11:39 | disposition home or self-care (01) ==
LOC: HO.CHCLDS 11:38
PROVIDERS: Visit Provider Internal Medicine
DX: Z01.818 Encounter for other preprocedural examination (principal)
CPT/HCPCS: 36415; 80048; 85025

== ENCOUNTER 2025-08-02 10:42 | Outpatient (REF) | payer OTHER, SELFPAY ==
--- OUTSIDE RECORDS SUMMARY | 2025-08-02 12:48 | XMS_ITS | Clinical Summary ---
Author Organization [address] [facility] Address [address] [place] [address] Phone Care Team Providers Care Immunopathologist Name Role Phone Ariadne Jordan MD Primary Care Provider [phone] Surgical History Surgery Date Site/Laterality Comments TUBAL LIGATION PROCEDURE: HISTORICAL TUBAL LIGATION Family History Medical History Relation Name Comments Coronary artery disease Sister 1 Colon cancer Sister 2 Breast cancer Neg Hx Diabetes Neg Hx Hypertension Neg Hx Relation Name Status Comments Sister 1 Sister 2 Social History Tobacco Use Types Packs/Day Years Used Date Smoking Tobacco: Never Alcohol Use Standard Drinks/Week Comments No 0 (1 standard drink = 0.6 oz pur e alcohol) Comments No Sex and Gender Information Value Date Recorded Sex Assigned at Not on file Legal Sex Female 5:44 AM EST Gender Identity Not on file Sexual Orientation Not on file Obstetrics History Last Filed Vital Signs Vital Sign Reading Time Taken Comments Blood Pressure - - Pulse - - Temperature - - Respiratory Rate - - Oxygen Saturation - - Inhaled Oxygen Concentration - - Weight 67.6 kg (149 lb) 04/01/2025 10:39 AM EDT Height 157.5 cm (5' 2 ) 04/01/2025 10:39 AM EDT Body Mass Index 27.25 04/01/2025 10:39 AM EDT Plan of Treatment Health Maintenance Due Date Last Done Comments Colorectal Cancer Screening: Colonoscopy 1950 Zoster Vaccines (2 of 3) 09/06/2016 07/12/2016 Falls Risk Assessment 08/26/2022 Hepatitis C Screening 08/26/2022 Medicare Annual Wellness Visit 08/26/2022 Osteoporosis Screening (Bone Density Screening) 08/26/2022 Social Influencers of Health Screening 08/26/2022 Hypertension/CHF/CAD Annual BMP Blood Test 08/30/2022 Depression Screening 09/23/2024 COVID-19 Vaccine ( season) 2025 04/14/2022, 07/24/2021, 11/22/2020, Additional history exists Influenza Vaccine (#1) 2025 , 06/11/2023, 08/22/2022, Additional history exists RSV Immunization Adult Patients (1 - 1-dose 75+ series) 2025 DTaP,Tdap,and Td Vaccines (2 - Td or Tdap) 04/05/2026 04/05/2016 Cholesterol Screening (Lipid Panel) 09/01/2029 09/01/2024 Pneumococcal Vaccine: 50+ Years Completed 09/29/2018, 07/22/2017 Breast Cancer Screening Discontinued 04/01/20, 03/19/2024, 01/23/2023, Additional history exists HIB Vaccines Aged Out [...] on patient's age to complete this topic MMR Vaccines Aged Out No longer eligi ble based on patient's age to complete this topic Meningococcal ACWY Vaccine Aged Out N o longer eligible based on patient's age to complete this topic Meningococcal B Vaccine Aged Out No l onger eligible based on patient's age to complete this topic RSV Immunization Patients Under 20 months Aged Out No longer eligible based on patient's age to complete this topic Varicella Vaccines Aged Out No longer eligible based on patient's age to complete this topic Procedures Procedure Name Priority Date/Time Associated Diagnosis Comments MG MAMMO DIGITAL SCREENING W OLRIN BILAT Routine 04/01/2025 10:49 AM EDT Encounter for screening mammogram for breast cancer from Last 3 Months or Most Recently Relevant to Health Maintenance Results * MG Mammo Digital Screening w Orlin bilat (04/01/2025 10:49 AM EDT) Anatomical Region Laterality Modality Breast Bilateral Mammography 04/01/2025 4:57 PM EDT Impressions 04/01/2025 5:03 PM EDT No mammographic evidence of malignancy. No suspicious interval change. A negative mammogram in the presence of a clinically suspicious palpable abnormality does not preclude the possibility of malignancy or alter the indications for biopsy. ASSESSMENT: BI-RADS 1: NEGATIVE RECOMMENDATION(S): 1: Routine screening mammogram BILATERAL in 1 year. [facility] [address], [address] -------- FINAL REPORT -------- Dictated By: Storm Gilbert Dictated Date: 04/01/2025 16:57 ET Assigned Physician: Storm Gilbert Reviewed and Electronically Signed By: Storm Gilbert Signed Date: 04/01/2025 17:03 ET Workstation ID: [id number] Transcribed By: Self Edit Transcribed Date: 04/01/2025 16:57 ET Narrative 04/01/2025 5:03 PM EDT EXAM: SCREENING MAMMOGRAPHY, BILATERAL HISTORY: SCREENING. No additional history. COMPARISON: 03/19/24, 01/23/23, 01/16/22, 01/13/21, 11/26/19 TECHNIQUE: Synthesized CC and MLO projections of each breast. Tomosynthesis of each breast in the CC and MLO projections. ADDITIONAL IMAGING: None Computer-aided detection was employed with the [employer] AI 3-D. TISSUE DENSITY: The breasts are almost entirely fatty. (BI-RADS Category A) FINDINGS: RIGHT BREAST: No suspicious mass. No suspicious calcification. No distortion. No additional suspicious right breast findings LEFT BREAST: No suspicious mass. No suspicious calcification. No distortion. No additional suspicious left breast findings Procedure Note Storm Gilbert MD - 04/01/2025 EXAM: SCREENING MAMMOGRAPHY, BILATERAL HISTORY: SCREENING. No additional history. COMPARISON: 03/19/24, 01/23/23, 01/16/22, 01/13/21, 11/26/19 TECHNIQUE: Synthesized CC and MLO projections of each breast.Tomosynthesis of each breast in the CC and MLO projections. ADDITIONAL IMAGING: None Computer-aided detection was employed with the [employer] AI 3-D. TISSUE DENSITY: The breasts are almost entirely fatty. (BI-RADS CategoryA) FINDINGS: RIGHT BREAST: No suspicious mass. No suspicious calcification. No distortion. Noadditional suspicious right breast findings LEFT BREAST: No suspicious mass. No suspicious calcification. No distortion. Noadditional suspicious left breast findings IMPRESSION: No mammographic evidence of malignancy. No suspicious interval change. A negative mammogram in the presence of a clinically suspicious palpableabnormality does not preclude the possibility of malignancy or alter theindications for biopsy. ASSESSMENT: BI-RADS 1: NEGATIVE RECOMMENDATION(S): 1: Routine screening mammogram BILATERAL in 1 year. [facility]: [facility] [address] [place], [address] -------- FINAL REPORT -------- Dictated By: Storm Gilbert Dictated Date: 04/01/2025 16:57 ET Assigned Physician: Storm Gilbert Reviewed and Electronically Signed By: Storm Giblert Signed Date: 04/01/2025 17:03 ET Workstation ID: [id number] Transcribed By: Self Edit Transcribed Date: 04/01/2025 16:57 ET us Self Referral Sppl IMG BI PROCEDURES Final Resul t from Last 3 Months or Most Recently Relevant to Health Maintenance Insurance [facility] MEDICARE Member Subscriber Plan / Payer (Ef fective 2022-Present) Name:Dayan Gomez Relation to Subscriber:Self Name:Dayan Gomez Payer ID:[id number] Group ID:[id number] Type:Not on file Address: [place] [address] [place] [id number] Care Teams Immunopathologist Relationship Specialty Start Date End Date Ariadne Jordan MD [address] [place] [address] PCP - General Family Medicine 04/01/25
--- OUTSIDE RECORDS SUMMARY | 2025-08-02 12:48 | XMS_ITS | Encounter Summary ---
Author Organization [employer] [facility] Address [address] [facility] [address] [place] [address] Care Team Providers Care Fruit Raiser Name Role Phone Ariadne Jordan MD Primary Care Provider [phone] Tonny Matias CNP Primary Care Provider [phone] Encounter Details Date Type Department Care Team (Latest Contact Info) Description 11/10/2019 Abstract C CONVERSIONS Dental, Provider, DDS Social History Tobacco Use Types Packs/Day Years Used Date Smoking Tobacco: Never Assessed Comments Unknown Sex and Gender Information Value Date Recorded Sex Assigned at Female 07/23/2022 10:29 AM EDT Legal Sex Female 10:29 AM EDT Gender Identity Female 07/23/2022 10:29 AM EDT Sexual Orientation Straight 07/23/2022 10 :29 AM EDT documented as of this encounter Plan of Treatment Not on file documented as of this encounter Visit Diagnoses Not on filedocumented in this encounter Care Teams Fruit Raiser Relationship Specialty Start Date End Date Ariadne Jordan MD [address] [place] [address] PCP - General Family Medicine 09/08/15 07/21/25 Tonny Matias CNP [address] [place] [address] PCP - General Family Medicine 07/22/25 documented as of this encounter
--- OUTSIDE RECORDS SUMMARY | 2025-08-02 12:48 | XMS_ITS | Encounter Summary ---
Author Organization [employer] [facility] Address 75 [facility] 7 [place] [address] Care Team Providers Care Track Announcer Name Role Phone Ariadne Jordan MD Primary Care Provider [phone] Tonny Matias CNP Primary Care Provider [phone] Encounter Details Date Type Department Care Team (Latest Contact Info) Description 05/04/2019 Abstract C CONVERSIONS Dental, Provider, DDS Social [...] on filedocumented in this encounter Care Teams Track Announcer Relationship Specialty Start Date End Date Ariadne Jordan MD [address] [place] [address] PCP - General Family Medicine 09/08/15 07/21/25 Tonny Matias CNP [address] [place] [address] PCP - General Family Medicine 07/22/25 documented as of this encounter
--- OUTSIDE RECORDS SUMMARY | 2025-08-02 12:48 | XMS_ITS | Encounter Summary ---
Author Organization [employer] Address 75 [facility] 7t [place] [address] Care Team Providers Care Button Clamper Name Role Phone Ariadne Jordan MD Primary Care Provider [phone] Tonny Matias CNP Primary Care Provider [phone] Reason for Visit * Reason Onset Date Comments Referral 10/15/2023 Encounter Details Date Type Department Care Team (Late st Contact Info) Description 10/15/2023 Telephone [facility] MEDICINE [address] [place] [address] Ariadne Jordan MD [address] [place] [address] Referral Social History Tobacco Use Types Packs/Day [...] documented in this encounter Plan of Treatment Not on file documented as of this encounter Visit Diagnoses Not on filedocumented in this encounter Additional Health Concerns Assessment Noted Time PHQ-9 Depression Total Score: 2 06/11/20 23 11:02 AM EDT documented as of this encounter Care Teams Button Clamper Relationship Specialty Start Date End Date Ariadne Jordan MD [address] [place] [address] PCP - General Family Medicine 09/08/15 07/21/25 Tonny Matias CNP [address] [place] [address] PCP - General Family Medicine 07/22/25 documented as of this encounter
--- OUTSIDE RECORDS SUMMARY | 2025-08-02 12:48 | XMS_ITS | Encounter Summary ---
Author Organization [employer] Address 75 [facility] 7t [place] [address] Care Team Providers Care Hydro Plant Operator Name Role Phone Ariadne Jordan MD Primary Care Provider [phone] Tonny Matias CNP Primary Care Provider [phone] Reason for Visit * Reason Comments Med Refill Encounter Details Date Type Department Care Team ([facility] st Contact Info) Description 10/15/2023 Refill [facility] [address] [place] [address] Ariadne Jordan MD [address] [place] [address] Social History Tobacco Use Types Packs/Day Years [...] documented as of this encounter Care Teams Hydro Plant Operator Relationship Specialty Start Date End Date Ariadne Jordan MD [address] [place] [address] PCP - General Family Medicine 09/08/15 07/21/25 Tonny Matias CNP [address] [place] [address] PCP - General Family Medicine 07/22/25 documented as of this encounter
--- OUTSIDE RECORDS SUMMARY | 2025-08-02 12:48 | XMS_ITS | Encounter Summary ---
Author Organization [employer] Address 75 [facility] 7t [place] [address] Care Team Providers Care Tire Changer Name Role Phone Ariadne Jordan MD Primary Care Provider [phone] Tonny Matias CNP Primary Care Provider [phone] Reason for Visit * Reason Comments Med Refill Encounter Details Date Type Department Care Team ([facility] st Contact Info) Description 10/12/2023 Refill [facility] PED[facility] [address] [place] [address] Ariadne Jordan MD [address] [place] [address] Social History Tobacco Use Types Packs/Day Years [...] documented as of this encounter Care Teams Tire Changer Relationship Specialty Start Date End Date Ariadne Jordan MD [address] [place] [address] PCP - General Family Medicine 09/08/15 07/21/25 Tonny Matias CNP [address] [place] [address] PCP - General Family Medicine 07/22/25 documented as of this encounter
--- OUTSIDE RECORDS SUMMARY | 2025-08-02 12:48 | XMS_ITS | Encounter Summary ---
Author Organization [employer] Address 75 [facility] 7t [place] [address] Care Team Providers Care Ham Boner Name Role Phone Ariadne Jordan MD Primary Care Provider [phone] Tonny Matias CNP Primary Care Provider [phone] Reason for Visit * Reason Onset Date Comments Med Refill 09/27/2023 Encounter Details Date Type Department Care Team (Late st Contact Info) Description 09/27/2023 Telephone [facility] PEDS [address] [place], [place] [phone] Ariadne Jordan MD [address] [place] [address] Med Refill Social History Tobacco Use Types [...] Miscellaneous Notes * Telephone Encounter - Genny Brandon - 09/27/2023 10:21 AM EST TC from pt requesting medication refill. Medications needing refill : aspirin (EQ Aspirin Adult Low Dose) 81 MG EC tablet cyclobenzaprine (Flexeril) 10 MG tablet losartan (Cozaar) 50 MG tablet metoprolol tartrate (Lopressor) 100 MG tablet pravastatin (Pravachol) 20 MG tablet traZODone (Desyrel) 50 MG tablet triamcinolone (Kenalog) 0.5 % cream To be sent to: [facility] [place], [place] - [address] [place] [address] Pt is switching Pharmacy's from [facility] to [facility] documented in this encounter Plan of Treatment Not on file documented as of this encounter Visit Diagnoses Not on filedocumented in this encounter Additional Health Concerns Assessment Noted Time PHQ-9 Depression Total Score: 2 06/11/20 23 11:02 AM EDT documented as of this encounter Care Teams Ham Boner Relationship Specialty Start Date End Date Ariadne Jordan MD [address] [place] [address] PCP - General Family Medicine 09/08/15 07/21/25 Tonny Matias CNP [address] [place] [address] PCP - General Family Medicine 07/22/25 documented as of this encounter
--- OUTSIDE RECORDS SUMMARY | 2025-08-02 12:48 | XMS_ITS | Encounter Summary ---
Author Organization [employer] Address 75 [facility] 7t [place] [address] Care Team Providers Care Harvesting Supervisor Name Role Phone Ariadne Jordan MD Primary Care Provider [phone] Tonny Matias CNP Primary Care Provider [phone] Reason for Visit * Reason Onset Date Comments Med Refill 10/15/2023 Encounter Details Date Type Department Care Team (Late st Contact Info) Description 10/15/2023 Telephone [facility] MEDICINE [address] [place] [address] Ariadne Jordan MD [address] [place] [address] Med Refill Social History Tobacco Use Types [...] 20 MG tablet To be sent to: [facility] [address] [place] [address] documented in this encounter Plan of Treatment Not on file documented as of this encounter Visit Diagnoses Not on filedocumented in this encounter Additional Health Concerns Assessment Noted Time PHQ-9 Depression Total Score: 2 06/11/20 23 11:02 AM EDT documented as of this encounter Care Teams Harvesting Supervisor Relationship Specialty Start Date End Date Ariadne Jordan MD [address] [place] [address] PCP - General Family Medicine 09/08/15 07/21/25 Tonny Matias CNP [address] [place] [address] PCP - General Family Medicine 07/22/25 documented as of this encounter
--- OUTSIDE RECORDS SUMMARY | 2025-08-02 12:49 | XMS_ITS | Encounter Summary ---
Author Organization [employer] Address [address] [facility] 7t [place] [address] Care Team Providers Care Chief Pilot Name Role Phone Ariadne Jordan MD Primary Care Provider [phone] Tonny Matias CNP Primary Care Provider [phone] Encounter Details Date Type Department Care Team (Late st Contact Info) Description 08/05/2024 Orders Only [facility] [address] [place] [address] Provider, MD Lilibeth Social History Tobacco Use Types Packs/Day Years [...] on file documented as of this encounter Procedures Procedure Name Priority Date/Time Associated Diagnosis Comments CT ABDOMEN PELVIS W AND WO CONTRAST Routine 07/29/2024 4:09 PM EST documented in this encounter Results * CT Abdomen Pelvis w/ and w/o Contrast (07/29/2024 4:09 PM EST) Anatomical Region Laterality Modality Body, Pelvis, Abdomen Computed T omography Historical Provider MD HERRING CT PROCEDURES Final R esult documented in this encounter Visit Diagnoses Not on filedocumented in this encounter Additional Health Concerns Assessment Noted Time PHQ-9 Depression Total Score: 2 06/11/20 23 11:02 AM EDT documented as of this encounter Care Teams Chief Pilot Relationship Specialty Start Date End Date Ariadne Jordan MD [address] [place] [address] PCP - General Family Medicine 09/08/15 07/21/25 Tonny Matias CNP [address] [place] [address] PCP - General Family Medicine 07/22/25 documented as of this encounter
--- OUTSIDE RECORDS SUMMARY | 2025-08-02 12:49 | XMS_ITS | Data Portability ---
Author Organization [facility], [facility] Address [address] [place] [address] Care Team Providers Care Assisted Living Administrator Name Role Phone [facility] Referring Provider [facility] Referring Provider Assessment No assessment recorded. Plan [...] Body height Respiratory rate Body temperature Systolic And Diastolic Provider Name and Address Organization Details Last Updated DateTime 4 97 % 97 % 61655.8 g 56 /min 152.4 cm 14 /min 98.4 [degF] 160/90 mm[Hg] Not Available Mippin 4 13:48:02 Date Recorded Respiratory rate Body height Heart rate Body temperature Body weight Oxygen saturation Oxygen saturation in Arterial blood by Pulse oximetry Systolic And Diastolic Provider Name and Address Organization Details Last Updated DateTime 4 16 /min 154.94 cm 76 /min 98.2 [degF] 48084.8 g 98 % 98 % 166/81 mm[Hg] Not Available Mippin 4 16:22:15 Social History None recorded. Functional Status None recorded. Mental Status None recorded. Family History Nothing Reported. Medical History No medical history recorded. Gynecological HistoryNo gynecological history recorded. Obstetrics History GPAL:G 0 P 0 0 0 0 Past Encounters Encounter ID Performer Location Encounter Start Date Encounter Closed Date Diagnosis/Indication Diagnosis SNOMED-CT Code Diagnosis ICD10 Code Diagnosis IMO Codes Diagnosis Note [id number] PAVAN AL MD Main - [address] [address] 10/30/2023 13:47:18 10/31/2023 09:41:32 Sinus bradycardia 16817233 R00.1 Evaluation in the field was performed by my medical billing and coding specialist colleague, as noted above, I provided real-time [...] ) at @ 2:04. Spoke with office toll test desk worker ( pt was calling on the other line as well with the help of medical billing and coding specialist ) and asked for Dr. Howard to [...] concerns. Diana Rutledge MD Main - [facility] [address] [place] [id number] 11/25/2023 16:22:07 11/26/2023 09:34:29 Congestive heart failure [id number] I50.9 I provided real -time medical direction via phone for this encounter, and was available for additional phone based assistance as needed. I have reviewed and agree with the Assessment and Plan as documented by the Latex Spooler. Patient given the opportunit y to ask questions. started on flecanide 6 weeks ago. noting daily palpitatio ns in the last few weeks (increased from 2x/mo) and now new LE symmetric pitting edema. Denies chest pain, SOB, claudicati on, syncope/pr esyncope. no appreciabl e dietary changes. Heart and lung sounds reassuring on exam per medical billing and coding specialist. EKG: QRS 111, IVCD, NSR, no ischemic changes Exam consistent w/ heart failure but has an unclear driver's license reviewing officer. Concerned these symptoms may represent LV function depression 2/2 flecanide vs exacerbati on of underlying arrhythmia driving heart failure exacerbati on. Latex Spooler called cardiologi st with patient as did I to express concerns and ensure close follow up tomorrow. For the time being deferring diuretics given lack of clarity on driver's license reviewing officer. Pt to continue taking medication pending cardiology advice as I'm unsure if flecanide requires tapering. Reviewed warning signs/sx. Health Concerns Section Related Observation LastModified by Organization Detai ls LastModified Time None Recorded Concern Status LastModified by Organization Details LastModified Time None Recorded Advance Directives Directive None Recorded Payers Insurance Date Sequence Insurance Name Policy Number Policy Desir Covered Member ID Desir Member ID Guarantor Name 11/25/2023 1 [facility] - DOS ON OR AFTER 2022 - DUAL ELIGIBLE - LONG TERM OPTIONS AND ONE CARE (MEDICARE REPLACEMENT/ADV ANTAGE - HMO) Dayan Gomez [id number] Dayan Gomez Notes Date Note Type Note Provider Name and Address Organization Details Recorded Time 10/30/2023 text/html ROS as noted in the [facility] CRC Nurse Triage Notes (Steph De La [...] .................. .................. .................. .................. .................. .................. ............... Latex Spooler Note From Fuentes Clemente: Pt caox3 complains [...] and dry, secondary exam unremarkable. EKG to [facility]. [facility] requests that pt call electro tech to adjust dose today. I helped pt [...] .................. ............... Disposition: Fulfilled PAVAN AL MD [address] [place] [address],[address], [place], [address], [employer] 10/30/2023 17:48:50 11/25/2023 text/html CRC Nurse Triage Notes (Mata Montoya): Reason For Request: Pt reporting bilateral equal swelling of both lower extremities (feet) going on for 6 days>went to PCP last saturday and was told by doctor probably the medication and states the lungs were clear Chief Complaints: Edema PMH: Heart Disease Allergies: No Known Comments: Machining Department Supervisor verified the member's name//address and phone number. [...] .................. .................. .................. .................. .................. .................. ............... Latex Spooler Note From Joe Diaz: Pt reports increased [...] .................. ............... Disposition: Fulfilled Diana Rutledge MD [address] [facility],[address], [place], [address], [employer] 11/25/2023 22:49:15 OBGyn Episode No OBEpisode recorded.
--- OUTSIDE RECORDS SUMMARY | 2025-08-02 12:49 | XMS_ITS | Encounter Summary ---
Author Organization [employer] Address [address] [facility] [address] [place] [address] Care Team Providers Care Retail Loss Prevention Officer Name Role Phone Ariadne Jordan MD Primary Care Provider [phone] Tonny Matias CNP Primary Care Provider [phone] Encounter Details Date Type Department Care Team (Late st Contact Info) Description 12/24/2024 Orders Only [facility] & PEDS [address] [place] [address] Provider, MD Lilibeth Social History Tobacco Use [...] Associated Diagnosis Comments ECG 12-LEAD Routine 12/24/2024 3:15 PM EDT documented in this encounter Results * ECG 12 lead (12/24/2024 3:15 PM EDT) us Historical Provider ECG ORDERABLES Final Res ult documented in this encounter Visit Diagnoses Not on filedocumented in this encounter Additional Health Concerns Assessment Noted Time PHQ-9 Depression Total Score: 2 08/24/20 24 11:21 AM EST documented as of this encounter Care Teams Retail Loss Prevention Officer Relationship Specialty Start Date End Date Ariadne Jordan MD [address] [place] [address] PCP - General Family Medicine 09/08/15 07/21/25 Tonny Matias CNP [address] [place] [address] PCP - General Family Medicine 07/22/25 documented as of this encounter
--- OUTSIDE RECORDS SUMMARY | 2025-08-02 12:49 | XMS_ITS | Encounter Summary ---
Author Organization [employer] Address [address] [facility] 7[address] [place] [address] Care Team Providers Care Data Designer Name Role Phone Ariadne Jordan MD Primary Care Provider [phone] Tonny Matias CNP Primary Care Provider [phone] Reason for Visit * Reason Onset Date Comments Prior Authorization 06/24/2023 CT Chest w/o Contrast Encounter Details Date Type Department Care Team ([facility] st Contact Info) Description 06/24/2023 Telephone [facility] MED & PEDS [address] [place] [address] Ariadne Jordan MD [address] [place] [address] Prior Authorization (CT Chest w/o Contrast) Social [...] AM EDT Tc from Luis Carlos at [facility] calling in regards to PA for CT Chest w/o Contrast order. States they need clinical notes pertaining to pulmonary nodule. Country Singer did transfer Luis Carlos to HIM where she might be able to get notes. Luis Carlos still requested a call back. Please call [phone] ext [phone] Fax number [phone] documented in this encounter Plan of Treatment Not on file documented as of this encounter Visit Diagnoses Not on filedocumented in this encounter Additional Health Concerns Assessment Noted Time PHQ-9 Depression Total Score: 2 06/11/20 23 11:02 AM EDT documented as of this encounter Care Teams Data Designer Relationship Specialty Start Date End Date Ariadne Jordan MD [address] [place] [address] PCP - General Family Medicine 09/08/15 07/21/25 Tonny Matias CNP [address] [place] [address] PCP - General Family Medicine 07/22/25 documented as of this encounter
--- OUTSIDE RECORDS SUMMARY | 2025-08-02 12:49 | XMS_ITS | Clinical Summary ---
Author Organization [employer] Address [address] [facility] [address] [place] [address] Care Team Providers Care Senior Cost Estimator Name Role Phone FlorencioTonny RANDAL Primary Care Provider [phone] Allergies Active Allergy Reactions Criticality Noted Date Comments Amoxicillin Rash Low 04/26/2020 Medications amiodarone (Pacerone) 200 MG tablet Take 200 mg by mouth in the morning. 12/03/19 24 Active metoprolol tartrate (Lopressor) 50 MG tablet Take 1 tablet (50 mg) by mouth 2 times daily. 60 tablet 12/23/19 25 Active amLODIPine (Norvasc) 5 MG tablet Take 1 tablet (5 mg) by mouth Once per day. 30 tablet 11 05/25/20 25 026 Active Eliquis 5 MG tablet Take 1 tablet (5 mg) by mouth 2 times daily. 60 tablet 3 05/25/20 25 Active losartan (Cozaar) 50 MG tablet Take 1 tablet (50 mg) by mouth in the morning. 90 tablet 07/13/20 25 Active pravastatin (Pravachol) 20 MG tablet TAKE 1 TABLET BY MOUTH AT BEDTIME 90 tablet 1 07/21/20 25 Active pravastatin (Pravachol) 20 MG tablet Take 1 tablet (20 mg) by mouth at bedtime. 60 tablet 12/23/19 25 025 Discontinued(Du plicate order (will not trigger notification to Pharmacy)) pravastatin (Pravachol) 20 MG tablet TAKE 1 TABLET BY MOUTH AT BEDTIME 90 tablet 04/22/20 25 025 Discontinued metoprolol tartrate (Lopressor) 50 MG tablet TAKE 1 TABLET BY MOUTH TWICE A DAY 60 tablet 2 05/25/20 25 025 Discontinued(Du plicate order (will not trigger notification to Pharmacy)) losartan (Cozaar) 50 MG tablet TAKE 1 TABLET BY MOUTH IN THE MORNING 90 tablet 06/09/20 25 025 Discontinued(Re order (will not trigger notification to Pharmacy)) Active Problems Problem Noted Date Diagnosed Date Dyspepsia 04/17/2024 Congestive heart failure 12/24/2023 Longstanding persistent atrial fibrillation (CMS /HCC) 11/20/2023 Class 2 obesity 01/25/2023 Primary hypertension 11/29/2022 Hypercholesteremia 11/29/2022 Pulmonary nodule 11/29/2022 Resolved Problems Problem Noted Date Diagnosed Date Resolved Date Hypertension 04/17/2024 08/24/2024 Encounters Date Type Department Care Team Description 07/19/2025 Refill [facility]ED[facility] [address] [place] [address] Cleo Patel MD 07/13/2025 11:15 AM EDT Office Visit [facility] [address] [place] [address] Ariadne Jordan MD Primary hypertension (Primary Dx); Hypercholesteremia; Encounter for immunization 07/13/2025 Travel 07/12/2025 Telephone [facility] [address] [place] [address] Ariadne Jordan MD Chart Prep 06/08/2025 Refill [facility] [address] [place] [address] Ponce Bedoya MD 05/25/2025 Refill [facility] PEDS [address] [place] [address] Ariadne Jordan MD 05/24/2025 Refill [facility] [address] [place] [address] Ariadne Jordan MD from Last 3 Months Immunizations Immunization Administration Dates Next Due Influenza High-dose Quadriva lent Preservative Free 06/11/2023,08/02/2021,08/17/2020 Influenza Quadrivalent Adjuvanted 08/22/2022 Influenza injectable quadriv alent preservative free 09/29/2018,07/22/2017,07/12/2016 Influenza, High Dose Seasona l, Preservative Free 07/13/2025,08/24/2024,06/09/2019 Influenza, IIV3, injectable 08/22/2022,1 10/02/2020,08/17/2020,06/09,09/29/2018,07/22/2017,07/12/2016 ,08/04/2015 Pfizer Covid-19 Vaccine 12+ 07/24/2021, 1,11/01/2020 Pneumococcal Conjugate PCV 13 07/22/2017 Pneumococcal Polysaccharide [...] Date Recorded Patient Health Questionnaire-9 Score 2 07/13/2025 Patient Health Questionnaire-9 Score 2 07/13/2025 Last PHQ-9: Questionnaire Data Not on file 1 Housing Stability Answer Date Recorded What is your housing situation today? I have gonzalo ruelas 07/09/[address] you li ve. Do you have problems with any of the following? None of the above 07/09/2023 Food Insecurity Answer Date Recorded Within the past 12 months, y ou worried that your food would run out before you got money to buy more: Sometimes True 2024 Within the past 12 months,th e food you bought just didn't last and you didn't have enough money to get more: Sometimes True 01/01/2025 Transportation Answer Date Recorded In the past [...] Answer Date Recorded Patient Health Questionnaire-2 Score 1 07/13/2025 Internet Access Answer Date Recorded Internet Access [...] Sign Reading Time Taken Comments Blood Pressure 161/76 07/13/2025 11:08 AM EDT Pulse 82 07/13/2025 11:08 AM EDT Temperature 36.1 C (97 F) 07/13/2025 11:08 AM EDT Respiratory Rate 16 07/13/2025 11:08 AM EDT Oxygen Saturation 99% 07/13/2025 11:08 AM EDT Inhaled Oxygen Concentration - - Weight 70.3 kg (155 lb) 07/13/2025 11:08 AM EDT Height 153 cm (5' 0.25 ) 07/13/2025 11:08 AM EDT Body Mass Index 30.02 07/13/2025 11:08 AM EDT Plan of Treatment Health Maintenance Due Date Last Done Comments CT Colonography 1950 FIT DNA/Cologuard 1950 FIT 1950 FOBT 1950 Sigmoidoscopy 1950 Hepatitis C Screening 1968 Zoster Vaccines (2 of 3) 09/06/2016 07/12/2016 RSV Patients and Patients Aged 60 years or older (1 - 1-dose 75+ series) 2025 SDOH Screening 01/01/2026 01/01/2025 DTaP/Tdap/Td Vaccines (2 - Td or Tdap) 04/05/2026 04/05/2016 Alcohol/Substance Use Screening 07/13/2026 07/13/2025 COVID-19 Vaccine ( - season) 2026 04/14/2022, 07/24/2021, 11/22/2020, Additional history exists Postponed from 05/24/2025 (Patient Refused) Depression Screening 07/13/2026 07/13/2025, 10/21/20 25 Tobacco Screening 07/13/2026 07/13/2025 Colonoscopy 05/18/2029 05/18/2024, 03/28/2017 Colorectal Cancer Screening 05/18/2029 Lipid Panel 09/01/2029 09/01/2024, 04/23, 07/02/2023, Additional history exists Pneumococcal Vaccine: 50+ Years Completed 09/29/2018, 07/22/2017 Influenza Vaccine Completed 07/13/2025, , 06/11/2023, Additional history exists HIB Vaccines Aged Out [...] Procedure Name Priority Date/Time Associated Diagnosis Comments LIPID PANEL, STANDARD Routine 09/01/2024 10:37 AM EST Primary hypertension Hypercholesteremia COLONOSCOPY Routine 05/18/2024 from Last 3 Months or Most Recently Relevant to Health Maintenance Results * (ABNORMAL) Lipid Panel, Standard (09/01/2024 10:37 AM EST) Triglycerides 94 <150 mg/dL [facility] Comment:Desirable Triglyceri de: less than 150 mg/dLBorderline High Triglyceride 150-199 mg/dLHigh Triglyceride: 200-499 mg/dLVery High Triglyceride: greater than or equal to 5OO mg/dL Cholesterol 198 <200 mg/dL [facility] Comment:Desirable Cholestero l: less than 200 mg/dLBorderline High Cholesterol: 200-239 mg/dLHigh Cholesterol: greater than 239 mg/dL LDL Cholesterol Calculated 116(H) <100 mg/dL [facility] Comment:Desirable LDL: less than 100 mg/dLNear Optimal/Above Optimal LDL: 110- 129 mg/dLBorderline High LDL: 130-159 mg/dLHigh LDL: 160-189 mg/dLVery High LDL: greater than or equal to 190 mg/dL HDL Cholesterol 64 >40 mg/dL [facility] Comment:Desirable HDL: great er than 40 mg/dL Note: This HDL assay may give artificially low results in patients with liver disease. Blood Venous blood specimen / Unknown 09/01/2024 10:37 AM EST 09/01/2024 2:12 PM EST Ariadne Jordan MD LAB BLOOD ORDERABLES Final Resul t [facility] [address] [place] [address] [phone] * Colonoscopy (05/18/2024) Colonoscopy Normal Normal Narrative Silvia Huerta - 05/18/2024 Repeat in 5 years due to family history ( note scanned in media) Historical Provider HEALTH MAINTENANCE Final Result from Last 3 Months or Most Recently Relevant to Health Maintenance Insurance [facility] [employer] (HMO D-SNP) MARISOL ÁLVAREZ [id number] Care Teams Senior Cost Estimator Relationship Specialty Start Date End Date Tonny Matias CNP [address] [place] [address] PCP - General Family Medicine 07/22/25
--- OUTSIDE RECORDS SUMMARY | 2025-08-02 12:49 | XMS_ITS | Encounter Summary ---
Author Organization [employer] Address [address] [facility] [address]t [place] [address] Care Team Providers Care Dedenter Name Role Phone Ariadne Jordan MD Primary Care Provider [phone] Tonny Matias CNP Primary Care Provider [phone] Encounter Details Date Type Department Care Team (Late st Contact Info) Description 04/02/2025 Orders Only [facility] MED & PEDS [address] [place] [address] Provider, MD Lilibeth Social History Tobacco Use [...] Procedure Name Priority Date/Time Associated Diagnosis Comments HM MAMMOGRAPHY Routine 04/01/2025 9:00 AM EDT documented in this encounter Results * Hm Mammography (04/01/2025 9:00 AM EDT) Anatomical Region Laterality Modality Other Historical Provider HEALTH MAINTENANCE Final Result documented in this encounter Visit Diagnoses Not on filedocumented in this encounter Additional Health Concerns Assessment Noted Time PHQ-9 Depression Total Score: 2 08/24/20 24 11:21 AM EST documented as of this encounter Care Teams Dedenter Relationship Specialty Start Date End Date Ariadne Jordan MD [address] [place] [address] PCP - General Family Medicine 09/08/15 07/21/25 Tonny Matias CNP [address] [place] [address] PCP - General Family Medicine 07/22/25 documented as of this encounter
--- OUTSIDE RECORDS SUMMARY | 2025-08-02 12:49 | XMS_ITS | Encounter Summary ---
Author Organization [facility] Address [address] [place] [address] Care Team Providers Care Recreation Attendant Name Role Phone Ariadne Jordan MD Primary Care Provider [phone] Encounter Details Date Type Department Care Team (Late st Contact Info) Description 12/25/2024 Lab Requisition [facility] - Main Lab [address] [facility] [place] [place] [address] Bar Leal MD [address] [place] [address] Other microscopic hematuria Social History Tobacco Use Types Packs/Day Years Used Date Smoking Tobacco: Never Alcohol Use Standard Drinks/Week Comments No 0 (1 standard drink = 0.6 oz pur e alcohol) Comments Unknown Sex and Gender Information Value Date Recorded Sex Assigned at Not on file Legal Sex Female 5:44 AM EST Gender Identity Not on file Sexual Orientation Not on file documented as of this encounter Plan of Treatment Not on file documented as of this encounter Procedures Procedure Name Priority Date/Time Associated Diagnosis Comments AP OUTSIDE CONSULT Routine 12/23/2024 12 :00 AM EDT Other microscopic hematuria documented in this encounter Results * Anatomic pathology outside consult (12/23/2024 12:00 AM EDT) Final Diagnosis A. Urine, Voided, ([id number]): Negative for high grade urothelial carcinoma. Results of [employer] fluorescence in situ hybridization (FISH) testing: CEP3: Normal CEP7: Normal CEP17: Normal LSI 9p21: Normal Interpretation: Normal profile Controls stained appropriately. Note: The results are intended as a screening device and should be interpreted in association with other clinical and pathological findings. 12/28/2024 4:[address] [facility] Clinical Information Other microscopic hematuria R31.29 Urine Cytology/FISH (now) 12/28/2024 4:[address] [facility] Gross Description A. Urine, Voided, ([id number]): Received one ThinPrep slide for cytology and one ThinPrep slide for [employer] FISH 12/28/2024 4:[address] [facility] Disclaimer Unless otherwise specified, all tissue is 10% NB formalin fixed and paraffin embedded. Technical pathology services provided by [facility] at [address] [place] [address] [address], [place] [address] (CLIA #[id number]/Paty Conklin MD, Tenter Frame Operator) 12/28/2024 4:[address] [facility] Tissue Urine specimen from urethra / Unknown 12/23/2024 12/25/2024 3:29 PM EDT us Bar Leal MD LAB PATHOLOGY ORDERABLES Final Result [facility] [address] [place] [address], documented in this encounter Visit Diagnoses Diagnosis Other microscopic hematuria documented in this encounter Care Teams Recreation Attendant Relationship Specialty Start Date End Date Ariadne Jordan MD [address] [place] [address] PCP - General Family Medicine 04/01/25 documented as of this encounter
[2025-08-02 14:59] LABS: Alanine Aminotransferase 42 U/L (0-31); Albumin Level 4.5 g/dL (3.5-5.0); Alkaline Phosphatase 92 U/L (39-117); Anion Gap 14 (12-20); Aspartate Amino Transferase 44 U/L (5-31); Blood Urea Nitrogen 17 mg/dL (9-16); Calcium 9.6 mg/dL (8.4-10.2); Carbon Dioxide 25 mmol/L (22-29); Chloride 106 mmol/L (96-108); Cholesterol 180 mg/dL (<200); Estimated Glomerular Filt Rate 57; HDL Cholesterol 65 mg/dL (>40); Potassium 3.6 mmol/L (3.3-5.1); Sodium 141 mmol/L (135-145); Total Protein 8.2 g/dL (6.5-8.0); Triglycerides 85 mg/dL (<150)
== END 2025-08-02 10:43 | disposition home or self-care (01) ==
LOC: HO.CHCLDS 10:42
PROVIDERS: Visit Provider Student in an Organized Health Care Education/Training Program
DX: I10 Essential (primary) hypertension (principal)
CPT/HCPCS: 36415; 80048; 80061; 80076